=== PATIENT | female | born 1985 | race Caucasian/White ===

== ENCOUNTER → 2016-06-01 | Outpatient (CLI) | payer OTHER | LOC: YCFC.O 13:55 | PROVIDERS: ATTEND Nurse Practitioner Family | DX: D64.9 Anemia, unspecified (principal) ==

== ENCOUNTER 2016-08-06 17:23 | Emergency (ER) | payer OTHER ==
[2016-08-06 17:42] VITALS: TEMP 99.2
--- NOTE | 2016-08-06 17:50 | ED.PDOC ---
History of Present Illness - General Chief Complaint: GI Problem Stated Complaint: n/v/d, aching all over Time Seen by Provider: 08/06/16 17:43 Source: patient Exam Limitations: no limitations - History of Present Illness Initial Comments: Ms. Ladan Joseph 30 y/o female with no chronic medical problem stated that yesterday she had nausea and vomiting x 2 and today with watery diarrhea 4x.She stated that she had been taking care of several sick children at home Allergies/Adverse Reactions: Allergies NO KNOWN ALLERGY Allergy (Unverified 01/10/15 12:44) Home Medications: Ambulatory Orders Ondansetron [Zofran Odt] 4 mg PO Q4H PRN #10 tab 05/14/16 Promethazine HCl 50 mg PO TID PRN #20 tab 08/06/16 Review of Systems - Review of Systems Constitutional: States: no symptoms reported EENTM: States: no symptoms reported Respiratory: States: no symptoms reported Cardiology: States: no symptoms reported Gastrointestinal/Abdominal: States: see HPI Genitourinary: States: no symptoms reported Musculoskeletal: States: no symptoms reported Skin: States: no symptoms reported Neurological: States: no symptoms reported Endocrine: States: no symptoms reported Hematologic/Lymphatic: States: no symptoms reported Past Medical History (General) - Patient Medical History Hx Seizures: No Hx Stroke: No Hx Dementia: No Hx Asthma: Yes Hx of COPD: No Hx Cardiac Disorders: No Hx Congestive Heart Failure: No Hx Pacemaker: No Hx Hypertension: No Hx Thyroid Disease: No Hx Diabetes: No Hx Gastroesophageal Reflux: No Hx Renal Disease: No Hx Cancer: No Hx of HIV: No Hx Hepatitis C: No Hx MRSA: No - Vaccination History Hx Influenza Vaccination: - unknown Hx Pneumococcal Vaccination: No - Social History Hx Tobacco Use: No Hx Alcohol Use: No Hx Substance Use: No Hx Substance Use Treatment: No Hx Depression: No - Female History Hx Last Menstrual Period: 04/29/14 Expected Date of Delivery:: 02/22/15 Family Medical History - Family History Mother Living Status: Still Living Hx Family Asthma: No Hx Family Congestive Heart Failure: No Hx Family Hypertension: Yes Hx Family Stroke: No Hx Cardiac Disease: No Hx Family Diabetes: Yes Hx Family Cancer: Yes Father Family History: Unknown Physical Exam - Physical Exam General Appearance: Alert, Anxious, No apparent distress Eye Exam: bilateral normal Ears, Nose, Throat: hearing grossly normal, normal ENT inspection, normal pharynx Neck: non-tender, full range of motion, supple Respiratory: chest non-tender, lungs clear, normal breath sounds, no respiratory distress Cardiovascular/Chest: normal peripheral pulses, regular rate, rhythm, no edema, no gallop, no JVD, no murmur Gastrointestinal/Abdominal: normal bowel sounds, non tender, soft, no organomegaly, no pulsatile mass Back Exam: normal inspection, no CVA tenderness, no vertebral tenderness Extremity: normal range of motion, non-tender, normal inspection Neurologic: no motor/sensory deficits, alert, normal mood/affect, oriented x 3 Skin Exam: normal color, warm/dry Progress - Progress Progress: 08/06/16 19:42 08/06/16 18:57 URINALYSIS Stat Laboratory Results WBC 3.8 K/mm3 (4.8-10.8) L 08/06/16 18:48 RBC 5.27 M/mm3 (4.20-5.40) 08/06/16 18:48 Hgb 14.2 gm/dL (12.0-16.0) 08/06/16 18:48 Hct 43.2 % (36.0-47.0) 08/06/16 18:48 MCV 81.9 fl (81.0-99.0) 08/06/16 18:48 MCH 26.9 pg (27.0-31.0) L 08/06/16 18:48 MCHC 33.0 g/dL (33.0-37.0) 08/06/16 18:48 RDW 24.5 % (11.5-14.5) H 08/06/16 18:48 Plt Count 109 K/mm3 (130-400) L 08/06/16 18:48 MPV 8.9 fl (7.40-10.4) 08/06/16 18:48 Absolute Neuts (auto) 2.60 K/uL (1.8-6.8) 08/06/16 18:48 Absolute Lymphs (auto) 0.90 K/uL (1.0-3.4) L 08/06/16 18:48 Absolute Monos (auto) 0.20 K/uL (0.2-0.8) 08/06/16 18:48 Absolute Eos (auto) 0.10 K/uL (0.0-0.4) 08/06/16 18:48 Absolute Basos (auto) 0.00 K/uL (0.0-0.1) 08/06/16 18:48 Neutrophils % 68.4 % (42.0-78.0) 08/06/16 18:48 Lymphocytes % 23.1 % (20.0-50.0) 08/06/16 18:48 Monocytes % 4.6 % (2.0-9.0) 08/06/16 18:48 Eosinophils % 3.4 % (1.0-5.0) 08/06/16 18:48 Basophils % 0.5 % (0.0-2.0) 08/06/16 18:48 Normal RBC Morphology 2+aniso 1+microcytosis 08/06/16 18:48 Normal RBC Morphology 2+aniso 1+microcytosis 08/06/16 18:48 Sodium 139 mmol/L (135-145) 08/06/16 18:48 Potassium 3.4 mmol/L (3.6-5.0) L 08/06/16 18:48 Chloride 100 mmol/L (101-111) L 08/06/16 18:48 Carbon Dioxide 32 mmol/L (21-31) H 08/06/16 18:48 Anion Gap 10.4 (12-18) L 08/06/16 18:48 BUN 14 mg/dL (7-18) 08/06/16 18:48 Creatinine 0.83 mg/dL (0.6-1.3) 08/06/16 18:48 BUN/Creatinine Ratio 16.9 (10-20) 08/06/16 18:48 Random Glucose 96 mg/dL (70-105) 08/06/16 18:48 Serum Osmolality 277.9 mOsm/L (275-295) 08/06/16 18:48 Calcium 9.2 mg/dL (8.4-10.2) 08/06/16 18:48 Total Bilirubin 0.4 mg/dL (0.2-1.0) 08/06/16 18:48 AST 22 IU/L (10-42) 08/06/16 18:48 ALT 21 IU/L (10-60) 08/06/16 18:48 Alkaline Phosphatase 72 IU/L (42-121) 08/06/16 18:48 Serum Total Protein 7.2 gm/dL (6.4-8.2) 08/06/16 18:48 Albumin 4.4 g/dl (3.2-5.5) 08/06/16 18:48 Globulin 2.8 gm/dL (2.3-3.5) 08/06/16 18:48 Albumin/Globulin Ratio 1.6 (1.1-1.9) 08/06/16 18:48 Lipase 27 U/L (22-51) 08/06/16 18:48 08/06/16 20:29 Departure - Departure Clinical Impression: Diarrhea Nausea & vomiting Qualifiers: Vomiting type: unspecified Vomiting Intractability: non-intractable Qualifier Code: (R11.2) Nausea with vomiting, unspecified Time of Disposition: 20:30 Disposition: Discharge to Home or Self Care Condition: Good Departure Forms: ED Discharge - Pt. Copy, Patient Portal Self Enrollment Instructions: DI for Viral Gastroenteritis -- Adult, Viral Gastroenteritis, Gastroenteritis Diet Prescriptions: Promethazine HCl 50 mg PO TID PRN #20 tab PRN Reason: Nausea Home Medications: Ambulatory Orders Ondansetron [Zofran Odt] 4 mg PO Q4H PRN #10 tab 05/14/16 Promethazine HCl 50 mg PO TID PRN #20 tab 08/06/16 Additional Instructions: AVOID GREASY/ SPICY FOODS UNTIL BETTER
[2016-08-06] MEDS ORDERED: DICYCLOMINE HCL INJ 20 MG/2 ML AMP IM ONE (18:24)
[2016-08-06] MEDS ORDERED: LACTATED RINGERS 1,000 ML IVS ONE (18:24)
[2016-08-06] MEDS ORDERED: ONDANSETRON INJ 4 MG/2 ML VIAL IV ONE (18:24)
[2016-08-06 20:53] VITALS: BP 118/63; O2SAT 100
== END 2016-08-06 20:53 | disposition home or self-care (01) ==
LOC: ER 17:23
DX: R11.2 Nausea with vomiting, unspecified (principal); R19.7 Diarrhea, unspecified; J45.909 Unspecified asthma, uncomplicated
CPT/HCPCS: 36415; 80053; 81001; 83690; 85025; J0500; J2405; J7120

== ENCOUNTER 2016-08-10 13:11 | Emergency (ER) | payer OTHER ==
[2016-08-10 13:26] VITALS: TEMP 98.4
--- NOTE | 2016-08-10 13:43 | ED.PDOC ---
History of Present Illness - General Chief Complaint: Abdominal Pain Stated Complaint: abdominal pain Time Seen by Provider: 08/10/16 13:33 Source: patient Exam Limitations: no limitations - History of Present Illness Initial Comments: Patient presents with abdominal pain since early this morning. While she was sleeping she woke up and felt a "pop" around the mid-umbilical region. The pain is constant, stabbing, worse with movement, better with rest, no previous episodes. Has had C-sections x 2 and tubal ligation but no other abdominal surgeries. No previous episodes. No N/V/D. Last meal was this morning which did not affect the pain. No associated symptoms. Timing/Duration: other - 10 hours Severity: mild Improving Factors: rest Worsening Factors: movement Associated Symptoms: denies symptoms Allergies/Adverse Reactions: Allergies NO KNOWN ALLERGY Allergy (Verified 08/10/16 13:26) Review of Systems - Review of Systems Constitutional: States: no symptoms reported EENTM: States: no symptoms reported Respiratory: States: no symptoms reported Cardiology: States: no symptoms reported Gastrointestinal/Abdominal: States: see HPI Genitourinary: States: no symptoms reported Musculoskeletal: States: no symptoms reported Skin: States: no symptoms reported Neurological: States: no symptoms reported Endocrine: States: no symptoms reported Hematologic/Lymphatic: States: no symptoms reported Past Medical History (General) - Patient Medical History Hx Seizures: No Hx Stroke: No Hx Dementia: No Hx Asthma: Yes Hx of COPD: No Hx Cardiac Disorders: No Hx Congestive Heart Failure: No Hx Pacemaker: No Hx Hypertension: No Hx Thyroid Disease: No Hx Diabetes: No Hx Gastroesophageal Reflux: No Hx Renal Disease: No Hx Cancer: No Hx of HIV: No Hx Hepatitis C: No Hx MRSA: No Surgical History: other - Vaccination History Hx Tetanus, Diphtheria Vaccination: No Hx Influenza Vaccination: No Hx Pneumococcal Vaccination: No - Social History Hx Tobacco Use: No Hx Alcohol Use: No Hx Substance Use: No Hx Substance Use Treatment: No Hx Depression: No - Activities of Daily Living Hospice Agency (if applicable):: None - Female History Patient is a Female of Child Bearing Age (10 -59 yrs old): No Hx Last Menstrual Period: 04/29/14 Patient : No Expected Date of Delivery:: 02/22/15 - Triage Comment ED Triage Comment: last period "one week ago" Family Medical History - Family History Mother Living Status: Still Living Hx Family Asthma: No Hx Family Congestive Heart Failure: No Hx Family Hypertension: Yes Hx Family Stroke: No Hx Cardiac Disease: No Hx Family Diabetes: Yes Hx Family Cancer: Yes Father Family History: Unknown Physical Exam - Physical Exam General Appearance: Alert Respiratory: lungs clear Cardiovascular/Chest: regular rate, rhythm Gastrointestinal/Abdominal: other - Mildly TTP over periumbilical region with mild rebound tenderness over RLQ. NABS. No guarding. Morbidly obese. Extremity: normal range of motion, non-tender, normal inspection, no pedal edema Skin Exam: normal color Lymphatic: no adenopathy Progress - Progress Progress: 08/10/16 16:22 CT abdomen/pelvis showed possible enteritis or possible beginning of SBO. Patient was not nauseous and said she still had a good appetite. Platelets were 97 which represents almost a 50% drop in the last two months. RDW elevated and WBCs low. Recommend follow up with primary care physician tomorrow for further evaluation of possible hematologic pathology. Return to ER for nausea/vomiting or increasing abdominal pain. Laboratory Tests 08/10/16 08/10/16 08/10/16 13:30 13:38 13:50 WBC 3.8 L RBC 5.21 Hgb 14.1 Hct 42.5 MCV 81.7 MCH 27.0 MCHC 33.2 RDW 23.6 H Plt Count 97 L MPV 9.2 Absolute Neuts (auto) 2.80 Absolute Lymphs (auto) 0.70 L Absolute Monos (auto) 0.30 Absolute Eos (auto) 0.10 Absolute Basos (auto) 0.00 Neutrophils % 73.5 Lymphocytes % 17.5 L Monocytes % 7.0 Eosinophils % 1.6 Basophils % 0.4 Sodium 136 Potassium 3.7 Chloride 100 L Carbon Dioxide 31 Anion Gap 8.7 L BUN 13 Creatinine 0.74 BUN/Creatinine Ratio 17.6 Random Glucose 96 Serum Osmolality 271.9 L Calcium 9.1 Total Bilirubin 0.9 AST 31 ALT 35 Alkaline Phosphatase 70 Serum Total Protein 7.4 Albumin 4.2 Globulin 3.2 Albumin/Globulin Ratio 1.3 Lipase 22 Urine Color Yellow Urine Appearance Clear Urine pH 5.5 Ur Specific [place] <= 1.005 Urine Protein Negative Urine Glucose (UA) Negative Urine Ketones Negative Urine Blood Negative Urine Nitrite Negative Urine Bilirubin Negative Urine Urobilinogen 0.2 Ur Leukocyte Esterase Negative Urine RBC 0 Urine WBC 0 Ur Epithelial Cells 1-3 Amorphous Sediment 1+ Urine Bacteria 0 Urine HCG, Qual Negative Departure - Departure Clinical Impression: Abdominal pain Disposition: Discharge to Home or Self Care Condition: Good Departure Forms: ED Discharge - Pt. Copy, Patient Portal Self Enrollment Instructions: DI for Abdominal Pain-Adult Diet: resume usual diet Additional Instructions: Increase oral fluids. See your primary care doctor tomorrow regarding your blood laboratories. Return to the ER if you cannot keep food down or for increasing abdominal pain.
--- NOTE | 2016-08-10 15:57 | CT ---
Procedure: CT ABDOMEN PELVIS WITH IV CONTRAST Exam date: 08/10/2016 1:49 PM CDT Ordering Provider: Simon Roche Clinical Indication: abdominal pain Comparison: None Technique: Multiple axial helical CT images of the abdomen and pelvis were obtained with oral contrast.. IV contrast also administered. Coronal and sagittal reformatted images were also obtained. Findings: Lung bases are clear and the heart apex within normal limits. No inferior mediastinal abnormality. Inferior osseous structures of the thorax are unremarkable. Marked scoliotic curvature of the lumbosacral spine. The solid abdominal viscera are unremarkable. Multiple prominent loops of small bowel appear moderately distended including the jejunum and proximal ileum. The distal ileum appears fluid filled without mass lesion. There is no mesenteric edema or fat stranding. However, there are a few prominent lymph nodes. Findings are favored to represent an infectious or inflammatory enteritis or an ileus. No definite obstruction, however low-grade partial small bowel obstruction could have this appearance. Consider serial KUBs for evaluation of obstruction if there small bowel obstruction symptoms. No diverticula identified. No peritoneal or retroperitoneal masses or adenopathy. No free fluid or pneumoperitoneum. The appendix is unremarkable. Urinary bladder is unremarkable. No pelvic masses or adenopathy seen. Perirectal fat planes are preserved. Incidental note of a Bartholin's gland cyst in the vulva. Congenital fusion across multiple vertebral element seen throughout the lumbosacral spine without acute fracture or subluxation. There is advanced left greater than right hip osteoarthritis. Impression: 1. Prominent small bowel loops with oral contrast only traversing the jejunum and proximal ileum. Findings are favored to represent an infectious or inflammatory enteritis with ileus. However, early partial small bowel obstruction could have this appearance as well. Consider follow-up with serial KUBs if there are symptoms for small bowel obstruction. 2. 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 Advanced left greater than right hip osteoarthritis. 3. Bartholin's gland cyst. Electronically signed by: Jean Joseph MD 08/10/2016 3:56 PM CDT
[2016-08-10 16:37] VITALS: BP 109/73; O2SAT 96
== END 2016-08-10 16:37 | disposition home or self-care (01) ==
LOC: ER 13:11
DX: R10.9 Unspecified abdominal pain (principal); J45.909 Unspecified asthma, uncomplicated

== ENCOUNTER → 2016-09-23 | Outpatient (CLI) | payer OTHER | LOC: YCFC.O 15:12 | PROVIDERS: ATTEND Nurse Practitioner Family | DX: M79.604 Pain in right leg (principal) ==

== ENCOUNTER → 2016-09-24 | Outpatient (CLI) | payer OTHER ==
--- NOTE | 2016-09-25 04:08 | US ---
Procedure: US LOWER EXTREMITY VEINS LIMITED/UNILATERAL/FOLLOW UP Exam Date: 09/24/2016 Ordering Provider: Roseline Arzate Clinical Indication: PAIN Comparison: None Real time ultrasound was utilized for evaluation of the deep veins of the Right lower extremity. Color Doppler and pulse Doppler analysis was performed, including B-mode/grayscale imaging, Doppler spectral analysis and color flow analysis. Real time visualization of the right lower extremity deep veins was accomplished. Inclusion [employer] Teacher images recorded. The deep veins demonstrated no abnormal intraluminal signal. The pulse Doppler and color Doppler flow patterns demonstrated normal venous flow with respiratory variation. There was increased flow with distal augmentation maneuvers. IMPRESSION: There were no findings to suggest intraluminal clot or obstruction in the deep veins of the right lower extremity. Electronically signed by: Sage Lam MD 09/25/2016 4:08 AM CDT
== END | disposition home or self-care (01) ==
LOC: US 13:28
PROVIDERS: ATTEND Nurse Practitioner Family
DX: M79.604 Pain in right leg (principal)

== ENCOUNTER 2016-11-19 15:21 | Emergency (ER) | payer OTHER ==
--- NOTE | 2016-11-19 16:20 | ED.PDOC ---
History of Present Illness - General Chief Complaint: Lower Extremity Injury Stated Complaint: L ankle pain Time Seen by Provider: 11/19/16 16:18 Source: patient, RN notes reviewed, Vital Signs reviewed Exam Limitations: no limitations - History of Present Illness Initial Comments: Patient was watering plants in her yard and stepped in a hole causing her ankle to twist and pop. She is now having pain and numbness, mostly laterally and posteriorly. Occurred: just prior to arrival Pain - Lower Extremity: moderate: Left Ankle Method of Injury: twisted Improving Factors: rest Worsening Factors: movement Allergies/Adverse Reactions: Allergies NO KNOWN ALLERGY Allergy (Verified 08/10/16 13:26) Review of Systems - Review of Systems Constitutional: States: no symptoms reported Respiratory: States: no symptoms reported Cardiology: States: no symptoms reported Gastrointestinal/Abdominal: States: no symptoms reported Musculoskeletal: States: see HPI, joint pain - L ankle, joint swelling - L ankle Skin: States: no symptoms reported Neurological: States: numbness - L foot and ankle All other Systems: No Change from Baseline Past Medical History (General) - Patient Medical History Hx Seizures: No Hx Stroke: No Hx Dementia: No Hx Asthma: Yes Hx of COPD: No Hx Cardiac Disorders: No Hx Congestive Heart Failure: No Hx Pacemaker: No Hx Hypertension: No Hx Thyroid Disease: No Hx Diabetes: No Hx Gastroesophageal Reflux: No Hx Renal Disease: No Hx Cancer: No Hx of HIV: No Hx Hepatitis C: No Hx MRSA: No - Vaccination History Hx Tetanus, Diphtheria Vaccination: No Hx Influenza Vaccination: No Hx Pneumococcal Vaccination: No - Social History Hx Tobacco Use: No Hx Alcohol Use: No Hx Substance Use: No Hx Substance Use Treatment: No Hx Depression: No - Female History Hx Last Menstrual Period: 04/29/14 Patient : No Expected Date of Delivery:: 02/22/15 Family Medical History - Family History Mother Living Status: Still Living Hx Family Asthma: No Hx Family Congestive Heart Failure: No Hx Family Hypertension: Yes Hx Family Stroke: No Hx Cardiac Disease: No Hx Family Diabetes: Yes Hx Family Cancer: Yes Father Family History: Unknown Physical Exam - Physical Exam General Appearance: Alert, Comfortable, No apparent distress, Well Developed, Well Groomed, Well Hydrated, Well Nourished Cardiovascular/Respiratory: normal peripheral pulses, no respiratory distress Leg: normal inspection, non-tender, no evidence of injury, normal ROM Knee: normal inspection, non-tender, no evidence of injury, normal ROM Ankle: limited ROM - L ankle due to pain, pain, soft tissue tenderness, swelling Foot: normal inspection, non-tender, no evidence of injury, normal ROM, other - Moves all toes, brisk cap refill, 2+ DP pulse, normal sensation to light touch Neuro/Tendon: normal sensation, normal motor functions, normal tendon functions , responds to pain Mental Status: alert, oriented x 3 Skin: normal color, warm/dry Progress - EKG/XRAY/CT XRAY: ankle - No fracture per Radiologist Procedures - Splinting Left Ankle Pre-Made Type: aircast Splint: Ankle stirup splint Pre-Proc Neuro Vasc Exam: normal Post-Proc Neuro Vasc Exam: normal Departure - Departure Clinical Impression: Left ankle sprain Qualifiers: Encounter type: initial encounter Involved ligament of ankle: tibiofibular ligament Qualified Code(s): S93.432A - Sprain of tibiofibular ligament of left ankle, initial encounter Time of Disposition: 16:57 Disposition: Discharge to Home or Self Care Condition: Good Departure Forms: ED Discharge - Pt. Copy, Patient Portal Self Enrollment Instructions: DI for Ankle Sprain Diet: resume usual diet Activity: increase activity as tolerated Referrals: Aicha Wheat NP [Primary Care Provider] - 1-2 Weeks
--- NOTE | 2016-11-19 16:47 | RAD ---
EXAM DESCRIPTION: Ankle,Left 3 Views CLINICAL HISTORY: 31 years, Female, pain s/p twist COMPARISON: None. FINDINGS: No fracture or dislocation. Mild soft tissue swelling laterally. Probable joint effusion. IMPRESSION: No fracture or dislocation. Mild soft tissue swelling laterally Electronically signed by: Emir Lugo MD 11/19/2016 4:46 PM CDT
[2016-11-20 08:33] VITALS: TEMP 98.5
[2016-11-20 08:35] VITALS: BP 118/76; O2SAT 97
== END 2016-11-19 17:22 | disposition home or self-care (01) ==
LOC: ER 15:21
DX: S93.432A Sprain of tibiofibular ligament of left ankle, initial encounter (principal); J45.909 Unspecified asthma, uncomplicated; X50.1XXA Overexertion from prolonged static or awkward postures, initial encounter; Y92.007 Garden or yard of unspecified non-institutional (private) residence as the place of occurrence of the external cause; Y93.H2 Activity, gardening and landscaping

== ENCOUNTER 2017-01-30 15:03 | Emergency (ER) | payer OTHER ==
--- NOTE | 2017-01-30 16:23 | ED.PDOC ---
History of Present Illness - General Chief Complaint: Respiratory Problem Stated Complaint: Feels discomfort with breathing Time Seen by Provider: 01/30/17 16:22 Source: patient Exam Limitations: no limitations - History of Present Illness Initial Comments: Rhoda Joseph 31 y/o female stated that she had been having left sided sharp chest pain non radiating steady for the last 2 weeks.No cough no sob no diaphoresis. Timing/Duration: other - 2 weeks Improving Factors: nothing Worsening Factors: other - deep breaths Associated Symptoms: denies symptoms Allergies/Adverse Reactions: Allergies NO KNOWN ALLERGY Allergy (Verified 01/30/17 16:32) Home Medications: Ambulatory Orders Albuterol Inhaler [Ventolin Hfa Inhaler] 2 puff INH QID PRN 01/30/17 Lidocaine [Aspercreme Lidocaine Max] 4 % EX DAILY #14 pad 01/30/17 Naproxen [Naprosyn] 500 mg PO BID #20 tab 01/30/17 Review of Systems - Review of Systems Constitutional: States: no symptoms reported EENTM: States: no symptoms reported Respiratory: States: no symptoms reported Cardiology: States: no symptoms reported Gastrointestinal/Abdominal: States: no symptoms reported Genitourinary: States: no symptoms reported 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 Past Medical History (General) - Patient Medical History Hx Seizures: No Hx Stroke: No Hx Dementia: No Hx Asthma: Yes Hx of COPD: No Hx Cardiac Disorders: No Hx Congestive Heart Failure: No Hx Pacemaker: No Hx Hypertension: No Hx Thyroid Disease: No Hx Diabetes: No Hx Gastroesophageal Reflux: No Hx Renal Disease: No Hx Cancer: No Hx of HIV: No Hx Hepatitis C: No Hx MRSA: No Hx Other PMH: Yes - noonans syndrome Surgical History: other - hip,ear - Vaccination History Hx Tetanus, Diphtheria Vaccination: No Hx Influenza Vaccination: No Hx Pneumococcal Vaccination: No - Social History Hx Tobacco Use: No Hx Alcohol Use: No Hx Substance Use: No Hx Substance Use Treatment: No Hx Depression: No - Female History Hx Last Menstrual Period: 04/29/14 Patient : No Expected Date of Delivery:: 02/22/15 Family Medical History - Family History Mother Living Status: Still Living Hx Family Asthma: No Hx Family Congestive Heart Failure: No Hx Family Hypertension: Yes Hx Family Stroke: No Hx Cardiac Disease: No Hx Family Diabetes: Yes Hx Family Cancer: Yes Father Family History: Unknown Living Status: Unknown Physical Exam - Physical Exam General Appearance: Alert, Anxious Eye Exam: bilateral normal Ears, Nose, Throat: hearing grossly normal, normal ENT inspection, normal pharynx Neck: non-tender, full range of motion, normal inspection Respiratory: chest non-tender, lungs clear, normal breath sounds, other - tenderness left rib cage Cardiovascular/Chest: normal peripheral pulses, regular rate, rhythm, no murmur Peripheral Pulses: radial,right: 1+, radial,left: 1+ Gastrointestinal/Abdominal: normal bowel sounds, non tender, soft, no organomegaly Back Exam: no CVA tenderness, no vertebral tenderness Extremity: non-tender, no pedal edema, no calf tenderness Skin Exam: normal color, warm/dry Lymphatic: no adenopathy Progress - Progress Progress: 01/30/17 18:25 Last Vital Signs Temp 97.8 F 01/30/17 15:28 Pulse 86 01/30/17 15:28 Resp 20 01/30/17 15:28 BP 121/67 01/30/17 15:28 Pulse Ox 97 01/30/17 15:28 Laboratory Tests 01/30/17 01/30/17 01/30/17 16:39 16:39 16:39 WBC 6.7 RBC 4.94 Hgb 14.3 Hct 42.7 MCV 86.6 MCH 28.9 MCHC 33.4 RDW 13.3 Plt Count 147 MPV 8.8 Absolute Neuts (auto) 3.90 Absolute Lymphs (auto) 2.10 Absolute Monos (auto) 0.50 Absolute Eos (auto) 0.20 Absolute Basos (auto) 0.10 Neutrophils % 57.4 Lymphocytes % 31.3 Monocytes % 6.9 Eosinophils % 3.5 Basophils % 0.9 D-Dimer, Quantitative < 230 Sodium 140 Potassium 4.4 Chloride 108 Carbon Dioxide 28 Anion Gap 8.4 L BUN 20 H Creatinine 0.82 BUN/Creatinine Ratio 24.4 H Random Glucose 95 Serum Osmolality 281.8 Calcium 9.5 Total Bilirubin 0.8 AST 18 ALT 15 Alkaline Phosphatase 60 Troponin I Serum Total Protein 7.2 Albumin 4.1 Globulin 3.1 Albumin/Globulin Ratio 1.3 Urine HCG, Qual Urine Opiates Screen Urine Barbiturates Ur Phencyclidine Scrn U Amphetamin/Meth Scrn U Benzodiazepines Scrn U Cocaine Metab Screen U Cannabinoids Screen 01/30/17 01/30/17 01/30/17 16:39 16:39 16:39 WBC RBC Hgb Hct MCV MCH MCHC RDW Plt Count MPV Absolute Neuts (auto) Absolute Lymphs (auto) Absolute Monos (auto) Absolute Eos (auto) Absolute Basos (auto) Neutrophils % Lymphocytes % Monocytes % Eosinophils % Basophils % D-Dimer, Quantitative Sodium Potassium Chloride Carbon Dioxide Anion Gap BUN Creatinine BUN/Creatinine Ratio Random Glucose Serum Osmolality Calcium Total Bilirubin AST ALT Alkaline Phosphatase Troponin I < 0.02 Serum Total Protein Albumin Globulin Albumin/Globulin Ratio Urine HCG, Qual Negative Urine Opiates Screen Negative Urine Barbiturates Negative Ur Phencyclidine Scrn Negative U Amphetamin/Meth Scrn Negative U Benzodiazepines Scrn Negative U Cocaine Metab Screen Negative U Cannabinoids Screen Negative - EKG/XRAY/CT EKG: Christophe, Sinus, nonspecific ST T wave Chg Comments: heart rate 59 XRAY: chest - no acute changes Departure - Departure Clinical Impression: Costochondritis Chest pain Qualifiers: Chest pain type: pleurodynia Qualified Code(s): R07.81 - Pleurodynia Time of Disposition: 18:27 Disposition: Discharge to Home or Self Care Condition: Good Departure Forms: ED Discharge - Pt. Copy, Patient Portal Self Enrollment Instructions: Costochondritis, DI for Costochondritis Referrals: Aicha Wheat NP [Primary Care Provider] - 1-2 Weeks Prescriptions: Lidocaine [Aspercreme Lidocaine Max] 4 % EX DAILY #14 pad Naproxen [Naprosyn] 500 mg PO BID #20 tab Home Medications: Ambulatory Orders Albuterol Inhaler [Ventolin Hfa Inhaler] 2 puff INH QID PRN 01/30/17 Lidocaine [Aspercreme Lidocaine Max] 4 % EX DAILY #14 pad 01/30/17 Naproxen [Naprosyn] 500 mg PO BID #20 tab 01/30/17 Additional Instructions: Follow up with primary 02/01/2017
--- NOTE | 2017-01-30 16:29 | RAD ---
EXAM: Two view chest. INDICATION: Chest pain. COMPARISON: Chest x-ray: 04/06/2016. FINDINGS: Cardiac silhouette: Unremarkable. Harriet: Unremarkable. Lobar consolidation: None. Pleural effusion: None. Pneumothorax: None. Other: None. Bones: There is levoscoliosis of the thoracic spine Other: None. IMPRESSION: 1. No acute cardiopulmonary process. Electronically signed by: Nilo Porter MD 01/30/2017 4:27 PM CDT Workstation: [id number]
[2017-01-30 16:32] VITALS: TEMP 97.8
[2017-01-30] MEDS ORDERED: KETOROLAC TROMETHAMINE INJ 30 MG/ML VIAL IM ONE (18:31)
[2017-01-30 18:52] VITALS: BP 119/81; O2SAT 100
== END 2017-01-30 18:51 | disposition home or self-care (01) ==
LOC: ER 15:03
DX: R07.81 Pleurodynia (principal); J45.909 Unspecified asthma, uncomplicated; Q87.1 Congenital malformation syndromes predominantly associated with short stature
CPT/HCPCS: 36415; 71020; 80053; 80307; 81025; 84484; 85025; 85379; 93005; J1885

== ENCOUNTER 2017-11-03 10:42 | Emergency (ER) | payer MEDICAID, MEDICARE ==
[2017-11-03 11:13] VITALS: BP 126/64; TEMP 98.2; O2SAT 97
[2017-11-03] MEDS ORDERED: ORPHENADRINE CITRATE 30 MG/ML AMP IM ONE (11:34)
[2017-11-03] MEDS ORDERED: KETOROLAC TROMETHAMINE INJ 60 MG/2 ML VIAL IM ONE (11:34)
[2017-11-03] MEDS ORDERED: traMADol 37.5MG/APAP 325MG 1 EA TAB PO ONE (11:35)
--- NOTE | 2017-11-03 11:40 | ED.PDOC ---
History of Present Illness - General Chief Complaint: Back Pain or Injury Stated Complaint: back pain Time Seen by Provider: 11/03/17 11:10 Source: patient Exam Limitations: no limitations - History of Present Illness Initial Comments: PT REPORTS RIGHT SIDED LOWER BACK PAIN WITH RADIATION DOWN RIGHT LEG SINCE YESTERDAY. PT REPORTS TAKING TYLENOL YESTERDAY WITHOUT RELIEF. PT DENIES FALL OR INJURY. Timing/Duration: 7-24 hours Quality/Severity: moderate, radiation Back Pain Location: lumbar spine Back Pain Radiation: buttocks, upper legs Improving Factors: immobilization Worsening Factors: movement Associated Symptoms: lower back pain Allergies/Adverse Reactions: Allergies NO KNOWN ALLERGY Allergy (Verified 01/30/17 16:32) Home Medications: Ambulatory Orders Albuterol Inhaler [Ventolin Hfa Inhaler] 2 puff INH QID PRN 01/30/17 Lidocaine [Aspercreme Lidocaine Max] 4 % EX DAILY #14 pad 01/30/17 Naproxen [Naprosyn] 500 mg PO BID #20 tab 01/30/17 Cyclobenzaprine HCl [Flexeril] 10 mg PO Q6HR PRN #20 tab 11/03/17 Ibuprofen 800 mg PO Q8HR PRN #30 tab 11/03/17 Tramadol-Acetaminophen [Ultracet] 1 - 2 tab PO Q6HR PRN #30 tab 11/03/17 Review of Systems - Review of Systems Constitutional: Denies: chills, fever EENTM: Denies: ear pain, nose congestion Respiratory: Denies: cough, short of breath Cardiology: Denies: chest pain, palpitations Gastrointestinal/Abdominal: Denies: diarrhea, nausea, vomiting Genitourinary: Denies: dysuria, frequency Musculoskeletal: States: see HPI, back pain, muscle pain Skin: Denies: change in hair/nails, dryness Neurological: Denies: headache, numbness Endocrine: States: no symptoms reported Hematologic/Lymphatic: States: no symptoms reported Past Medical History (General) - Patient Medical History Hx Seizures: No Hx Stroke: No Hx Dementia: No Hx Asthma: Yes Hx of COPD: No Hx Cardiac Disorders: No Hx Congestive Heart Failure: No Hx Pacemaker: No Hx Hypertension: No Hx Thyroid Disease: No Hx Diabetes: No Hx Gastroesophageal Reflux: No Hx Renal Disease: No Hx Cancer: No Hx of HIV: No Hx Hepatitis C: No Hx MRSA: No Hx Other - free text: NOONANS SYNDROME Surgical History: other - Vaccination History Hx Tetanus, Diphtheria Vaccination: No Hx Influenza Vaccination: No Hx Pneumococcal Vaccination: No - Social History Hx Tobacco Use: No Hx Alcohol Use: No Hx Substance Use: No Hx Substance Use Treatment: No Hx Depression: No - Female History Hx Last Menstrual Period: 04/29/14 Patient : No Expected Date of Delivery:: 02/22/15 Family Medical History - Family History Mother Living Status: Still Living Hx Family Asthma: No Hx Family Congestive Heart Failure: No Hx Family Hypertension: Yes Hx Family Stroke: No Hx Cardiac Disease: No Hx Family Diabetes: Yes Hx Family Cancer: Yes Father Family History: Unknown Living Status: Unknown Physical Exam - Physical Exam General Appearance: Alert, Comfortable, Obvious distress, Well Groomed, Well Hydrated, Well Nourished, Other - SHORT STATURE Eyes, Ears, Nose, Throat Exam: PERRL/EOMI, normal ENT inspection Neck Exam: non-tender, full range of motion, normal alignment, normal inspection Cardiovascular/Respiratory: regular rate, rhythm, no M/R/G, normal breath sounds , no respiratory distress Back Exam: no vertebral tenderness, other - RIGHT PARA LUMBAR TENDERNESS Extremity Exam: no evidence of injury, normal range of motion, other - POSITIVE STRAIGHT LEG RAISE ON RIGHT AT 30DEGREES Neurologic: no motor/sensory deficits, alert, normal mood/affect, oriented x 3 Skin Exam: normal color, warm/dry Progress - Progress Progress: 11/03/17 12:56 PT REPORTS SIGNIFICANT IMPROVEMENT AFTER TORADOL, NORFLEX, AND ULTRACET. Departure - Departure Clinical Impression: Acute sciatica Time of Disposition: 12:06 Disposition: Long-Term Condition: Good Departure Forms: ED Discharge - Pt. Copy, Patient Portal Self Enrollment Instructions: DI for Back Pain With Sciatica Diet: resume usual diet Activity: increase activity as tolerated, no exercise, no lifting Referrals: Roseline Arzate NP [Primary Care Provider] - 1-2 Weeks Prescriptions: Cyclobenzaprine HCl [Flexeril] 10 mg PO Q6HR PRN #20 tab PRN Reason: Muscle Spasms Tramadol-Acetaminophen [Ultracet] 1 - 2 tab PO Q6HR PRN #30 tab PRN Reason: Pain Ibuprofen 800 mg PO Q8HR PRN #30 tab PRN Reason: Pain Home Medications: Ambulatory Orders Albuterol Inhaler [Ventolin Hfa Inhaler] 2 puff INH QID PRN 01/30/17 Lidocaine [Aspercreme Lidocaine Max] 4 % EX DAILY #14 pad 01/30/17 Naproxen [Naprosyn] 500 mg PO BID #20 tab 01/30/17 Cyclobenzaprine HCl [Flexeril] 10 mg PO Q6HR PRN #20 tab 11/03/17 Ibuprofen 800 mg PO Q8HR PRN #30 tab 11/03/17 Tramadol-Acetaminophen [Ultracet] 1 - 2 tab PO Q6HR PRN #30 tab 11/03/17
== END 2017-11-03 12:19 ==
LOC: ER 10:42
DX: M54.41 Lumbago with sciatica, right side (principal); J45.909 Unspecified asthma, uncomplicated; Q87.1 Congenital malformation syndromes predominantly associated with short stature; Z79.899 Other long term (current) drug therapy
CPT/HCPCS: J1885; J2360

== ENCOUNTER 2017-11-17 11:23 | Emergency (ER) | payer MEDICAID ==
[2017-11-17 11:37] VITALS: TEMP 97.8
--- NOTE | 2017-11-17 11:39 | ED.PDOC ---
History of Present Illness - General Chief Complaint: NOTE KEEPER Problem Time Seen by Provider: 11/17/17 11:36 Source: patient, RN notes reviewed Additional Information: 32 YEAR OLD PRESENTS WITH HEAVY MENSTRUAL BLEEDING ASSOCIATED WITH CRAMPS HER PERIODS LAST 7 DAYS AND IT HAS BEEN PAINFUL SHE HAS BEEN SEEING HER OBGYN WHO HAS RECOMMENDED HYSTRECTOMY SHE HAS NO OTHER KNOWN MEDICAL PROBLEMS SHE IS NOT ANY ANTICOAGULANTS SHE HAS NO SYNCOPAL SPELLS - History of Present Illness Timing/Duration: week Quality: moderate, cramping Onset Location: unknown Radiation: none Activites at Onset: none Improving Factors: nothing Worsening Factors: nothing Associated Symptoms: denies symptoms Allergies/Adverse Reactions: Allergies NO KNOWN ALLERGY Allergy (Verified 01/30/17 16:32) Home Medications: Ambulatory Orders Albuterol Inhaler [Ventolin Hfa Inhaler] 2 puff INH QID PRN 01/30/17 Lidocaine [Aspercreme Lidocaine Max] 4 % EX DAILY #14 pad 01/30/17 Naproxen [Naprosyn] 500 mg PO BID #20 tab 01/30/17 Cyclobenzaprine HCl [Flexeril] 10 mg PO Q6HR PRN #20 tab 11/03/17 Ibuprofen 800 mg PO Q8HR PRN #30 tab 11/03/17 Tramadol-Acetaminophen [Ultracet] 1 - 2 tab PO Q6HR PRN #30 tab 11/03/17 Acetamin W/Cod #3 Tab [Tylenol w/CODEINE #3] 1 ea PO Q6HR PRN #40 tab 11/17/17 Review of Systems - Review of Systems Constitutional: States: no symptoms reported EENTM: States: no symptoms reported Respiratory: States: no symptoms reported Cardiology: States: no symptoms reported Gastrointestinal/Abdominal: States: no symptoms reported Genitourinary: States: see HPI Musculoskeletal: States: no symptoms reported Skin: States: no symptoms reported Neurological: States: no symptoms reported Endocrine: States: no symptoms reported Hematologic/Lymphatic: States: no symptoms reported Past Medical History (General) - Patient Medical History Hx Seizures: No Hx Stroke: No Hx Dementia: No Hx Asthma: Yes Hx of COPD: No Hx Cardiac Disorders: No Hx Congestive Heart Failure: No Hx Pacemaker: No Hx Hypertension: No Hx Thyroid Disease: No Hx Diabetes: No Hx Gastroesophageal Reflux: No Hx Renal Disease: No Hx Cancer: No Hx of HIV: No Hx Hepatitis C: No Hx MRSA: No - Vaccination History Hx Tetanus, Diphtheria Vaccination: No Hx Influenza Vaccination: No Hx Pneumococcal Vaccination: No - Social History Hx Tobacco Use: No Hx Alcohol Use: No Hx Substance Use: No Hx Substance Use Treatment: No Hx Depression: No - Female History Hx Last Menstrual Period: 04/29/14 Patient : No Expected Date of Delivery:: 02/22/15 Family Medical History - Family History Mother Living Status: Still Living Hx Family Asthma: No Hx Family Congestive Heart Failure: No Hx Family Hypertension: Yes Hx Family Stroke: No Hx Cardiac Disease: No Hx Family Diabetes: Yes Hx Family Cancer: Yes Father Family History: Unknown Living Status: Unknown Physical Exam - Physical Exam General Appearance: Alert, Anxious Eyes, Ears, Nose, Throat Exam: PERRL/EOMI, normal ENT inspection, TMs normal, pharynx normal Neck: non-tender, full range of motion, supple Cardiovascular/Respiratory: regular rate, rhythm, no M/R/G, normal peripheral pulses, no JVD, normal breath sounds Gastrointestinal/Abdominal: normal bowel sounds, non tender, soft, no organomegaly, no pulsatile mass Back Exam: normal inspection, no CVA tenderness, no vertebral tenderness, CVA tenderness (R) Neurologic: registered occupational therapist II-XII nml as tested, no motor/sensory deficits, alert, normal mood/affect, oriented x 3 Progress - Results/Orders Results/Orders: Laboratory Tests 11/17/17 11/17/17 11/17/17 11:53 11:53 11:53 WBC 4.5 L RBC 4.68 Hgb 12.9 Hct 39.0 MCV 83.3 MCH 27.5 MCHC 33.0 RDW 14.5 Plt Count 166 MPV 8.3 Absolute Neuts (auto) 2.40 Absolute Lymphs (auto) 1.70 Absolute Monos (auto) 0.30 Absolute Eos (auto) 0.10 Absolute Basos (auto) 0.00 Neutrophils % 53.2 Lymphocytes % 37.5 Monocytes % 6.2 Eosinophils % 2.4 Basophils % 0.7 Sodium 138 Potassium 3.6 Chloride 102 Carbon Dioxide 30 Anion Gap 9.6 L BUN 15 Creatinine 0.91 BUN/Creatinine Ratio 16.5 Random Glucose 97 Serum Osmolality 276.4 Calcium 9.1 Serum HCG, Qual Negative Departure - Departure Clinical Impression: Dysfunctional uterine bleeding, Dysmenorrhea Disposition: Discharge to Home or Self Care Condition: Good Departure Forms: ED Discharge - Pt. Copy, Patient Portal Self Enrollment Diet: resume usual diet Activity: increase activity as tolerated Referrals: Roseline Arzate NP [Primary Care Provider] - 1-2 Weeks Prescriptions: Acetamin W/Cod #3 Tab [Tylenol w/CODEINE #3] 1 ea PO Q6HR PRN #40 tab PRN Reason: Mild To Moderate Pain Home Medications: Ambulatory Orders Albuterol Inhaler [Ventolin Hfa Inhaler] 2 puff INH QID PRN 01/30/17 Lidocaine [Aspercreme Lidocaine Max] 4 % EX DAILY #14 pad 01/30/17 Naproxen [Naprosyn] 500 mg PO BID #20 tab 01/30/17 Cyclobenzaprine HCl [Flexeril] 10 mg PO Q6HR PRN #20 tab 11/03/17 Ibuprofen 800 mg PO Q8HR PRN #30 tab 11/03/17 Tramadol-Acetaminophen [Ultracet] 1 - 2 tab PO Q6HR PRN #30 tab 11/03/17 Acetamin W/Cod #3 Tab [Tylenol w/CODEINE #3] 1 ea PO Q6HR PRN #40 tab 11/17/17
[2017-11-17] MEDS ORDERED: KETOROLAC TROMETHAMINE INJ 60 MG/2 ML VIAL IM ONE (11:41)
[2017-11-17 13:14] VITALS: BP 106/59; O2SAT 99
== END 2017-11-17 13:06 | disposition home or self-care (01) ==
LOC: ER 11:23
DX: N93.8 Other specified abnormal uterine and vaginal bleeding (principal); J45.909 Unspecified asthma, uncomplicated
CPT/HCPCS: 36415; 80048; 84703; 85025; J1885

== ENCOUNTER 2018-07-25 18:55 | Emergency (ER) | payer MEDICARE, OTHER ==
[2018-07-25] MEDS ORDERED: SUCRALFATE 1 GM TAB PO ONE (19:40)
[2018-07-25] MEDS ORDERED: PANTOPRAZOLE SODIUM TAB 40 MG PO ONE (19:40)
[2018-07-25] MEDS ORDERED: DICYCLOMINE HCL 20 MG TAB PO ONE (19:41)
--- NOTE | 2018-07-25 19:41 | ED.PDOC ---
History of Present Illness - General Chief Complaint: General Stated Complaint: L ear pain, back pain, abd burning Time Seen by Provider: 07/25/18 19:37 Source: patient Exam Limitations: no limitations - History of Present Illness Initial Comments: Rhoda Joseph 32 y/o female came to ER with sharp left earache ,dull mid back pain,burning pain upper abdomen for the last 4 days.No fever ,dysuria,with mild nasal congestion as well as scoliosis. Timing/Duration: other - see hpi Severity: moderate Improving Factors: rest Worsening Factors: movement Associated Symptoms: other - see hpi Allergies/Adverse Reactions: Allergies NO KNOWN ALLERGY Allergy (Verified 01/30/17 16:32) Home Medications: Ambulatory Orders Albuterol Inhaler [Ventolin Hfa Inhaler] 2 puff INH QID PRN 01/30/17 Baclofen 20 mg PO BID #14 tab 07/25/18 Pantoprazole Tablet [Protonix] 40 mg PO ACBK #60 tab 07/25/18 Sucralfate Tab [Carafate Tab] 1 gm PO ACHS #60 tablet 07/25/18 Review of Systems - Review of Systems Constitutional: States: no symptoms reported EENTM: States: ear pain Respiratory: States: no symptoms reported Cardiology: States: no symptoms reported Gastrointestinal/Abdominal: States: see HPI Genitourinary: States: no symptoms reported Musculoskeletal: States: see HPI Skin: States: no symptoms reported Endocrine: States: no symptoms reported Past Medical History (General) - Patient Medical History Hx Seizures: No Hx Stroke: No Hx Dementia: No Hx Asthma: Yes Hx of COPD: No Hx Cardiac Disorders: No Hx Congestive Heart Failure: No Hx Pacemaker: No Hx Hypertension: No Hx Thyroid Disease: No Hx Diabetes: No Hx Gastroesophageal Reflux: Yes Hx Renal Disease: No Hx Cancer: No Hx of HIV: No Hx Hepatitis C: No Hx MRSA: No Hx Other PMH: Yes - noonans syndrome Surgical History: other - hip ear - Vaccination History Hx Tetanus, Diphtheria Vaccination: No Hx Influenza Vaccination: No Hx Pneumococcal Vaccination: No - Social History Hx Tobacco Use: No Hx Alcohol Use: No Hx Substance Use: No Hx Substance Use Treatment: No Hx Depression: No Hx Physical Abuse: No Hx Emotional Abuse: No - Female History Patient is a Female of Child Bearing Age (10 -59 yrs old): Yes Hx Last Menstrual Period: 07/09/18 Patient : No - Triage Comment ED Triage Comment: left ear pain, back pain from her "scoliosis " getting worse. Burning to upper abdomen especially after eating Family Medical History - Family History Mother Living Status: Still Living Hx Family Asthma: No Hx Family Congestive Heart Failure: No Hx Family Hypertension: Yes Hx Family Stroke: No Hx Cardiac Disease: No Hx Family Diabetes: Yes Hx Family Cancer: Yes Father Family History: Unknown Living Status: Unknown Physical Exam - Physical Exam General Appearance: Alert, Comfortable, No apparent distress Eye Exam: bilateral normal Ears, Nose, Throat: hearing grossly normal, normal ENT inspection, normal pharynx Neck: non-tender, full range of motion, supple, normal inspection Respiratory: chest non-tender, lungs clear, normal breath sounds, no respiratory distress Cardiovascular/Chest: normal peripheral pulses, regular rate, rhythm, no murmur Peripheral Pulses: radial,right: 2+, radial,left: 2+ Gastrointestinal/Abdominal: non tender, soft, no organomegaly Back Exam: no CVA tenderness, no vertebral tenderness, muscle spasm, other - thoracic scoliosis Extremity: no pedal edema, no calf tenderness Neurologic: no motor/sensory deficits, alert, oriented x 3 Skin Exam: normal color, warm/dry Progress - Progress Progress: 07/25/18 19:54 Vital Signs - 8 hr 07/25/18 19:10 Temperature 99.0 F Pulse Rate [ 92 H Right] Respiratory 18 Rate Blood Pressure 117/73 [Left Arm] O2 Sat by Pulse 100 Oximetry Departure - Departure Clinical Impression: Thoracic spine pain, Otalgia of left ear, Epigastric abdominal pain Scoliosis deformity of spine Qualifiers: Scoliosis type: thoracogenic Spinal region: thoracic Qualified Code(s): 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 Copy, Patient Portal Self Enrollment Instructions: Scoliosis (DC), Scoliosis Diet: bland diet, other - avoid greasy /spicy foods Referrals: Roseline Arzate NP [Primary Care Provider] - 1-2 Weeks Prescriptions: Baclofen 20 mg PO BID #14 tab Pantoprazole Tablet [Protonix] 40 mg PO ACBK #60 tab Sucralfate Tab [Carafate Tab] 1 gm PO ACHS #60 tablet Home Medications: Ambulatory Orders Albuterol Inhaler [Ventolin Hfa Inhaler] 2 puff INH QID PRN 01/30/17 Baclofen 20 mg PO BID #14 tab 07/25/18 Pantoprazole Tablet [Protonix] 40 mg PO ACBK #60 tab 07/25/18 Sucralfate Tab [Carafate Tab] 1 gm PO ACHS #60 tablet 07/25/18 Additional Instructions: Follow up with your primary Md for referral to Scoliosis clinic;Continue with Oxymetazoline Nose spray 2 sprays each nose am/pm 3 days on 3 days off for nasal congestion;Use nasal saline rinse both nostril as needed for nasal congestion ;do not blow your nose
[2018-07-25] MEDS ORDERED: traMADol HCL 50 MG TAB PO ONE (19:46)
[2018-07-25] MEDS ORDERED: ORPHENADRINE CITRATE 30 MG/ML AMP IM ONE (19:46)
[2018-07-25] MEDS ORDERED: OXYMETAZOLINE NASAL SPRAY 15 ML BTTL BNAS PRN (19:58)
[2018-07-25] MEDS ORDERED: SUCRALFATE 1 GM/10 ML 1 GM UD ONE (20:06)
[2018-07-25 20:23] VITALS: BP 123/90; TEMP 98.9; O2SAT 99
== END 2018-07-25 20:23 | disposition home or self-care (01) ==
LOC: ER 18:55
DX: H92.02 Otalgia, left ear (principal); R10.13 Epigastric pain; M41.34 Thoracogenic scoliosis, thoracic region; M54.6 Pain in thoracic spine; R09.81 Nasal congestion; J45.909 Unspecified asthma, uncomplicated; K21.9 Gastro-esophageal reflux disease without esophagitis; Z79.899 Other long term (current) drug therapy

== ENCOUNTER → 2018-08-08 | Outpatient (CLI) | payer OTHER | LOC: LAB.O 10:13 | PROVIDERS: ATTEND Nurse Practitioner Family | DX: Z00.00 Encounter for general adult medical examination without abnormal findings (principal); Z13.220 Encounter for screening for lipoid disorders; D50.9 Iron deficiency anemia, unspecified; Z68.37 Body mass index [BMI] 37.0-37.9, adult ==

== ENCOUNTER → 2018-08-10 | Outpatient (CLI) | payer OTHER ==
--- NOTE | 2018-08-10 17:49 | MAM ---
EXAM DESCRIPTION: 3D Diagnostic, Bilateral: Digital Mammography CLINICAL HISTORY: 32 yearsFemaleLUMP IN LEFT BREAST . Palpable mass upper outer quadrant middle third of left breast. Pain in the entire lateral half of the left breast. Severe scoliosis. No personal history of breast cancer. Mother with ovarian cancer at age 20. Childbirth. Premenopausal. No HRT. Remote family history of breast cancer. Lifetime risk of developing breast cancer (Tyrer-Cuzick model) percentage is not calculated. COMPARISON: Targeted left breast ultrasound included with this examination.. . TECHNIQUE: Bilateral CC, MLO, and LM projection full-field images, digital mammographic tomosynthesis technique. Bilateral 2-D digital full-field MLO images. CAD not available. FINDINGS: The breast parenchymal density pattern is: Heterogeneously dense breast tissue, which may obscure small masses. No skin thickening or nipple retraction mass density versus focal asymmetry in the upper-outer quadrant of the left breast near the skin surface and near the skin marker or mass is palpable. Accessory breast tissue in the bilateral axilla. Denser fibroglandular tissues in the upper outer quadrants of both breasts. No focal, stellate mass or density, focal asymmetry , and no suspicious microcalcifications right breast. No mass density or suspicious microcalcifications in the left breast. ULTRASOUND: Scanning of the upper outer quadrant of the middle third of the left breast at the 1:00 to 2:00 sector, 9 cm from the nipple. This is adjacent to the skin marker. Mostly fibroglandular tissues with minimal fatty Echotexture. No dominant solid mass or distinct cyst. No parenchymal edema or large calcifications. No overlying skin changes. Normal vascularity. IMPRESSION: Benign exam. BIRAD CATEGORY: 2 BENIGN FINDINGS. RECOMMENDATIONS: FOLLOW UP: Routine digital bilateral mammographic screening, beginning at age 40 , unless otherwise clinically indicated. The FINDINGS and the FOLLOW-UP plan were reviewed in person with the patient after the examination. Written communication explaining the IMPRESSION and FOLLOW-UP will be mailed to the patient and referring care provider. According to the [employer], yearly mammograms are recommended starting at age 40 and continuing as long as a woman is in good health. Any breast change noted on a breast self-exam should be reported promptly to the patient's healthcare provider. Breast MRI is recommended for women with an approximately 20-25% or greater lifetime risk of breast cancer, including women with a strong family history of breast or ovarian cancer and women who have been treated for Hodgkin's disease. A negative mammographic report should not delay tissue diagnosis in patients with significant clinical history or physical findings. Extremely dense breast tissue limits the sensitivity of digital mammography. Electronically signed by: Brendon Gibbs MD 08/10/2018 5:46 PM CDT
--- NOTE | 2018-08-10 17:52 | US ---
EXAM DESCRIPTION: Breast,Left: Ultrasound CLINICAL HISTORY: 32 yearsFemaleLUMP IN LEFT BREAST. Upper outer quadrant left breast. COMPARISON: Bilateral diagnostic digital breast tomosynthesis on this visit. TECHNIQUE: Transcutaneous scanning of the left breast utilizing bermudez-scale and Doppler modes. Scanning performed by the doors prefitter and Dr. Gibbs. FINDINGS: Scanning of the upper outer quadrant of the middle third of the left breast at the 1:00 to 2:00 sector, 9 cm from the nipple. This is adjacent to the skin marker. Mostly fibroglandular tissues with minimal fatty echotexture. No dominant solid mass or distinct cyst. No parenchymal edema or large calcifications. No overlying skin changes. Normal vascularity. IMPRESSION: 1. Bi-Rads Category 2: Benign. 2. Please refer to bilateral diagnostic digital breast tomosynthesis examination and report on this visit. The FINDINGS and the FOLLOW-UP plan were reviewed in person with the patient after the examination. Written communication explaining the IMPRESSION and FOLLOW-UP will be mailed to the patient and referring care provider. Electronically signed by: Brendon Gibbs MD 08/10/2018 5:49 PM CDT
== END ==
LOC: US 15:00
PROVIDERS: ATTEND Nurse Practitioner Family
DX: N63.20 Unspecified lump in the left breast, unspecified quadrant (principal)
CPT/HCPCS: 76641; 77066; G0279

== ENCOUNTER 2018-08-22 13:51 | Emergency (ER) | payer OTHER ==
[2018-08-22 14:26] VITALS: TEMP 99.3
[2018-08-22] MEDS ORDERED: HYDROcodone 5MG/APAP 325MG 1 EA TAB PO ONE (14:42)
[2018-08-22] MEDS ORDERED: KETOROLAC TROMETHAMINE INJ 30 MG/ML VIAL IV ONE (14:42)
--- NOTE | 2018-08-22 14:46 | ED.PDOC ---
History of Present Illness - General Chief Complaint: GI Problem Stated Complaint: Pt complains of headache, dizziness, LLQ abd pain Time Seen by Provider: 08/22/18 14:28 Information Source: patient Exam Limitations: no limitations - History of Present Illness Initial Comments: SHE WAS SEEN BY HER OB YESTERDAY, A SCHEDULED ROUTINE VISIT. SHE VOICES THAT SHE HAS BEEN HAVING ABDOMINAL PAIN INTERMITTENTLY FOR THE PAST THREE YEARS. MORE ON THE LEFT LOWER QUADRANT. SHE WAS TENDER ON THE PELVIC AREA AND HAS BEEN SCHEDULED FOR IMAGING IN [place] ON OCTOBER 02. Abdominal Pain Onset Location: LLQ Pain Radiation: no radiation Quality: moderate Timing/Duration: other - HAS BEEN HURTING FOR THE PAST THREE YEARS. Worsening Factors: nothing Associated Symptoms: denies symptoms Review of Systems - Review of Systems Constitutional: States: no symptoms reported EENTM: States: no symptoms reported Respiratory: States: no symptoms reported Cardiology: States: no symptoms reported Gastrointestinal/Abdominal: States: abdominal pain Musculoskeletal: States: other - HX OF SEVERE SCOLIOSIS Skin: States: no symptoms reported Neurological: States: no symptoms reported Endocrine: States: no symptoms reported Hematologic/Lymphatic: States: no symptoms reported Past Medical History (General) - Patient Medical History Hx Seizures: No Hx Stroke: No Hx Dementia: No Hx Asthma: Yes Hx of COPD: No Hx Cardiac Disorders: No Hx Congestive Heart Failure: No Hx Pacemaker: No Hx Hypertension: No Hx Thyroid Disease: No Hx Diabetes: No Hx Gastroesophageal Reflux: Yes Hx Renal Disease: No Hx Cancer: No Hx of HIV: No Hx Hepatitis C: No Hx MRSA: No Hx Other - free text: BARB SYNDROME, SEVERE SCOLIOSIS. Surgical History: other - Vaccination History Hx Tetanus, Diphtheria Vaccination: No Hx Influenza Vaccination: No Hx Pneumococcal Vaccination: No Immunizations Up to Date: - Unknown - Social History Hx Tobacco Use: No Hx Alcohol Use: No Hx Substance Use: No Hx Substance Use Treatment: No Hx Depression: No Hx Physical Abuse: No Hx Emotional Abuse: No - Female History Patient is a Female of Child Bearing Age (10 -59 yrs old): Yes Hx Last Menstrual Period: 07/09/18 Patient : - Pt denies Expected Date of Delivery:: 02/22/15 Family Medical History - Family History Mother Living Status: Still Living Hx Family Asthma: No Hx Family Congestive Heart Failure: No Hx Family Hypertension: Yes Hx Family Stroke: No Hx Cardiac Disease: No Hx Family Diabetes: Yes Hx Family Cancer: Yes Father Family History: Unknown Living Status: Unknown Physical Exam - Physical Exam General Appearance: Alert, Well Developed, Well Groomed, Well Nourished Eyes, Ears, Nose, Throat Exam: PERRL/EOMI, normal ENT inspection Neck: non-tender, full range of motion Respiratory: chest non-tender, lungs clear, normal breath sounds, no respiratory distress Cardiovascular/Chest: normal peripheral pulses, regular rate, rhythm, no edema, no gallop, no JVD, no murmur Peripheral Pulses: No deficit Gastrointestinal/Abdominal: tenderness - TO THE LLQ Rectal Exam: deferred Back Exam: vertebral tenderness, other - SCOLIOSIS Extremity: normal range of motion, non-tender, normal inspection Progress - Progress Progress: 08/22/18 16:11 Laboratory Results WBC 4.5 K/mm3 (4.8-10.8) L 08/22/18 14:50 RBC 4.52 M/mm3 (4.20-5.40) 08/22/18 14:50 Hgb 10.4 gm/dL (12.0-16.0) L 08/22/18 14:50 Hct 32.6 % (36.0-47.0) L 08/22/18 14:50 MCV 72.2 fl (81.0-99.0) L 08/22/18 14:50 MCH 23.0 pg (27.0-31.0) L 08/22/18 14:50 MCHC 31.8 g/dL (33.0-37.0) L 08/22/18 14:50 RDW 16.7 % (11.5-14.5) H 08/22/18 14:50 Plt Count 157 K/mm3 (130-400) 08/22/18 14:50 MPV 7.8 fl (7.40-10.4) 08/22/18 14:50 Absolute Neuts (auto) 2.70 K/uL (1.8-6.8) 08/22/18 14:50 Absolute Lymphs (auto) 1.20 K/uL (1.0-3.4) 08/22/18 14:50 Absolute Monos (auto) 0.50 K/uL (0.2-0.8) 08/22/18 14:50 Absolute Eos (auto) 0.10 K/uL (0.0-0.4) 08/22/18 14:50 Absolute Basos (auto) 0.00 K/uL (0.0-0.1) 08/22/18 14:50 Neutrophils % 59.8 % (42.0-78.0) 08/22/18 14:50 Lymphocytes % 26.9 % (20.0-50.0) 08/22/18 14:50 Monocytes % 11.1 % (2.0-9.0) H 08/22/18 14:50 Eosinophils % 1.5 % (1.0-5.0) 08/22/18 14:50 Basophils % 0.7 % (0.0-2.0) 08/22/18 14:50 Sodium 136 mmol/L (135-145) 08/22/18 14:50 Potassium 3.8 mmol/L (3.6-5.0) 08/22/18 14:50 Chloride 102 mmol/L (101-111) 08/22/18 14:50 Carbon Dioxide 27 mmol/L (21-31) 08/22/18 14:50 Anion Gap 10.8 (12-18) L 08/22/18 14:50 BUN 11 mg/dL (7-18) 08/22/18 14:50 Creatinine 0.76 mg/dL (0.6-1.3) 08/22/18 14:50 BUN/Creatinine Ratio 14.5 (10-20) 08/22/18 14:50 Random Glucose 82 mg/dL (70-105) 08/22/18 14:50 Serum Osmolality 270.4 mOsm/L (275-295) L 08/22/18 14:50 Calcium 9.3 mg/dL (8.4-10.2) 08/22/18 14:50 Total Bilirubin 0.5 mg/dL (0.2-1.0) 08/22/18 14:50 AST 23 IU/L (10-42) 08/22/18 14:50 ALT 16 IU/L (10-60) 08/22/18 14:50 Alkaline Phosphatase 65 IU/L (42-121) 08/22/18 14:50 Serum Total Protein 6.8 gm/dL (6.4-8.2) 08/22/18 14:50 Albumin 3.8 g/dl (3.2-5.5) 08/22/18 14:50 Globulin 3.0 gm/dL (2.3-3.5) 08/22/18 14:50 Albumin/Globulin Ratio 1.3 (1.1-1.9) 08/22/18 14:50 Serum HCG, Qual Negative (NEGATIVE) 08/22/18 14:50 Urine Color Yellow (Yellow) 08/22/18 15:34 Urine Appearance Clear (Clear) 08/22/18 15:34 Urine pH 5.5 (4.5-7.8) 08/22/18 15:34 Ur Specific [place] >= 1.030 (1.005-1.030) 08/22/18 15:34 Urine Protein 30 mg/dL 08/22/18 15:34 Urine Glucose (UA) 100 mg/dL (Negative) H 08/22/18 15:34 Urine Ketones Negative mg/dL (NEGATIVE) 08/22/18 15:34 Urine Blood Negative (Negative) 08/22/18 15:34 Urine Nitrite Negative 08/22/18 15:34 Urine Bilirubin Negative (NEGATIVE) 08/22/18 15:34 Urine Urobilinogen 0.2 mg/dL (0.2-1.0) 08/22/18 15:34 Ur Leukocyte Esterase Negative (Negative) 08/22/18 15:34 Urine RBC 0-1 /hpf 08/22/18 15:34 Urine WBC 0 /hpf 08/22/18 15:34 Ur Epithelial Cells 10-20 /hpf 08/22/18 15:34 Amorphous Sediment 2+ 08/22/18 15:34 Urine Bacteria Rare 08/22/18 15:34 abdominal series is non specific REVIEWED OLD RECORDS FROM JULY 2016: CT ABDOMEN AND PELVIS WAS DONE THEN- NEGATIVE. SHE SHOULD FOLLOW UP WITH DR. JOSEPH Departure - Departure Clinical Impression: Abdominal pain Qualifiers: Abdominal location: left lower quadrant Qualified Code(s): R10.32 - Left lower quadrant pain Time of Disposition: 16:12 Disposition: Discharge to Home or Self Care Condition: Good Departure Forms: ED Discharge - Pt. Copy, Patient Portal Self Enrollment Instructions: DI for Abdominal Pain -- Child Diet: resume usual diet Referrals: Roseline Arzate NP [Primary Care Provider] - 1-2 Weeks Prescriptions: Naproxen [Naprosyn] 500 mg PO BID #10 tab Home Medications: Ambulatory Orders Albuterol Inhaler [Ventolin Hfa Inhaler] 2 puff INH QID PRN 01/30/17 Baclofen 20 mg PO BID #14 tab 07/25/18 Pantoprazole Tablet [Protonix] 40 mg PO ACBK #60 tab 07/25/18 Sucralfate Tab [Carafate Tab] 1 gm PO ACHS #60 tablet 07/25/18 Naproxen [Naprosyn] 500 mg PO BID #10 tab 08/22/18
--- NOTE | 2018-08-22 15:18 | RAD ---
EXAM DESCRIPTION: Abdomen Series CLINICAL HISTORY: ABDOMINAL PAIN COMPARISON: October 06, 2011 FINDINGS: AP supine and upright views of the abdomen show a nonspecific, nonobstructive bowel gas pattern with no evidence for free intraperitoneal air. No air-filled dilated loops of small bowel are seen. No significant air-fluid levels are identified. No obvious organomegaly is seen. No abnormal calcifications are seen in the expected location of the renal collecting systems. Single view of the chest shows cardiac silhouette and pulmonary vasculature to be within normal limits. Lungs are normally aerated and clear. Moderate scoliosis of the spine is seen with curvature of the lower thoracic spine towards the left. Severe left greater than right osteophytic changes of the hips are again seen. IMPRESSION: Nonspecific abdominal series Electronically signed by: Benito Simon MD 08/22/2018 3:15 PM CDT
[2018-08-22 16:20] VITALS: BP 103/70; O2SAT 99
== END 2018-08-22 16:29 | disposition home or self-care (01) ==
LOC: ER 13:51
DX: R10.32 Left lower quadrant pain (principal); M41.9 Scoliosis, unspecified; J45.909 Unspecified asthma, uncomplicated; K21.9 Gastro-esophageal reflux disease without esophagitis; Q87.1 Congenital malformation syndromes predominantly associated with short stature
CPT/HCPCS: 36415; 74019; 80053; 81001; 84703; 85025; J1885

== ENCOUNTER 2018-12-11 21:41 | Emergency (ER) | payer OTHER ==
[2018-12-11 21:56] VITALS: TEMP 98.2
--- NOTE | 2018-12-11 22:07 | ED.PDOC ---
History of Present Illness - General Chief Complaint: Respiratory Problem Stated Complaint: told her lips were blue Time Seen by Provider: 12/11/18 22:01 Source: RN notes reviewed, Vital Signs reviewed Additional Information: 33 YEAR OLD WHITE FEMALE PRESENTS TO THE ED FOR EVALUATION OF LIPS TURNING BLUE SHE HAS HISTORY OF NOONANS SYNDROME SHE HAS NO KNOWN HEART VALVULAR DISEASE FROM NOONANS SHE HAS HISTORY OF ASTHMA BUT NO REPORT OF SHORTNESS OF BREATH NO CHEST PAIN NO FEVER CHILLS NO PERIPHERAL EDEMA - History of Present Illness Timing/Duration: 1/2 hour Severity: mild Improving Factors: nothing Worsening Factors: nothing Associated Symptoms: denies symptoms Allergies/Adverse Reactions: Allergies NO KNOWN ALLERGY Allergy (Verified 01/30/17 16:32) Home Medications: Ambulatory Orders Albuterol Inhaler [Ventolin Hfa Inhaler] 2 puff INH QID PRN 01/30/17 Review of Systems - Review of Systems Constitutional: States: no symptoms reported EENTM: States: no symptoms reported Respiratory: States: no symptoms reported Cardiology: States: no symptoms reported Gastrointestinal/Abdominal: States: no symptoms reported Genitourinary: States: no symptoms reported Musculoskeletal: States: no symptoms reported Skin: States: no symptoms reported Neurological: States: no symptoms reported Endocrine: States: no symptoms reported, intolerance to heat Past Medical History (General) - Patient Medical History Hx Seizures: No Hx Stroke: No Hx Dementia: No Hx Asthma: Yes Hx of COPD: No Hx Cardiac Disorders: No Hx Congestive Heart Failure: No Hx Pacemaker: No Hx Hypertension: No Hx Thyroid Disease: No Hx Diabetes: No Hx Gastroesophageal Reflux: Yes Hx Renal Disease: No Hx Cancer: No Hx of HIV: No Hx Hepatitis C: No Hx MRSA: No - Vaccination History Hx Tetanus, Diphtheria Vaccination: Yes Hx Influenza Vaccination: Yes Hx Pneumococcal Vaccination: No Immunizations Up to Date: No - Social History Hx Tobacco Use: No Hx Chewing Tobacco Use: No Hx Alcohol Use: No Hx Substance Use: No Hx Substance Use Treatment: No Hx Depression: Yes Hx Physical Abuse: No Hx Emotional Abuse: No Hx Suspected Abuse: No - Female History Hx Last Menstrual Period: 07/09/18 Patient : No Expected Date of Delivery:: 02/22/15 Family Medical History - Family History Mother Living Status: Still Living Hx Family Asthma: No Hx Family Congestive Heart Failure: No Hx Family Hypertension: Yes Hx Family Stroke: No Hx Cardiac Disease: No Hx Family Diabetes: Yes Hx Family Cancer: Yes Father Family History: Unknown Living Status: Unknown Physical Exam - Physical Exam General Appearance: Comfortable Eye Exam: bilateral normal Ears, Nose, Throat: hearing grossly normal, normal ENT inspection, normal pharynx Neck: non-tender, full range of motion, supple Respiratory: chest non-tender, lungs clear, no respiratory distress, no accessory muscle use, respiratory distress Cardiovascular/Chest: normal peripheral pulses, regular rate, rhythm, no edema, no gallop, no JVD, no murmur Gastrointestinal/Abdominal: normal bowel sounds, non tender, soft, no organomegaly, no pulsatile mass 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 Copy, Patient Portal Self Enrollment Referrals: Roseline Arzate NP [Primary Care Provider] - 1-2 Weeks Home Medications: Ambulatory Orders Albuterol Inhaler [Ventolin Hfa Inhaler] 2 puff INH QID PRN 01/30/17
[2018-12-11 22:37] VITALS: BP 116/71; O2SAT 99
== END 2018-12-11 22:34 | disposition home or self-care (01) ==
LOC: ER 21:41
DX: R23.0 Cyanosis (principal); Q87.1 Congenital malformation syndromes predominantly associated with short stature; F32.9 Major depressive disorder, single episode, unspecified; J45.909 Unspecified asthma, uncomplicated; K21.9 Gastro-esophageal reflux disease without esophagitis; Z32.02 Encounter for pregnancy test, result negative; Z79.899 Other long term (current) drug therapy

== ENCOUNTER 2019-01-24 21:11 | Emergency (ER) | payer MEDICARE, OTHER ==
[2019-01-24] MEDS ORDERED: IBUPROFEN 200 MG TAB PO ONE (21:37)
[2019-01-24] MEDS ORDERED: SODIUM CHLORIDE 0.9% 1000ML 1,000 ML IVS ONE (23:00)
[2019-01-25] MEDS ORDERED: cefTRIAXone SODIUM 2 GM in SODIUM CHL 0.9% 100ML MINI-BAG 100 ML IVPB ONE (00:04)
[2019-01-25] MEDS ORDERED: SODIUM CHL 0.9% 100ML MINI-BAG 100 ML IVPB ONE (00:16)
[2019-01-25 01:12] VITALS: O2SAT 94
[2019-01-25 01:59] VITALS: BP 101/63; TEMP 98.1
== END 2019-01-25 01:59 | disposition home or self-care (01) ==
LOC: ER 21:11
DX: R50.9 Fever, unspecified (principal); R78.81 Bacteremia; R05 Cough; R11.0 Nausea; J45.909 Unspecified asthma, uncomplicated; K21.9 Gastro-esophageal reflux disease without esophagitis; F32.9 Major depressive disorder, single episode, unspecified; Z98.890 Other specified postprocedural states; Z79.899 Other long term (current) drug therapy; Z91.041 Radiographic dye allergy status
CPT/HCPCS: 36415; 71045; 74176; 80053; 81001; 83605; 85025; 87040; 87070; 87502; 87880; J0696; J7030; J7050

== ENCOUNTER 2019-02-19 15:39 | Emergency (ER) | payer OTHER ==
[2019-02-19 16:38] VITALS: BP 104/83; TEMP 98.2; O2SAT 97
--- NOTE | 2019-02-19 16:41 | ED.PDOC ---
History of Present Illness - General Chief Complaint: Skin/Abrasion/Tear Stated Complaint: abscess Time Seen by Provider: 02/19/19 16:18 - History of Present Illness Initial Comments: Patient is a 33 year old presenting c/o a boil to her labia. Says it became swollen and painful two days ago, and that yesterday it opened up and started draining pus. Reports pain when she walks. denies fevers or chills. Allergies/Adverse Reactions: Allergies Iodine Adverse Reaction (Intermediate, Verified 02/19/19 16:37) Nausea Patient stated that she has a reaction to CT contrast that results in a hot feeling with nausea and vomitting. Home Medications: Ambulatory Orders Albuterol Inhaler [Ventolin Hfa Inhaler] 2 puff INH QID PRN 01/30/17 Sulfamethoxazole-Trimethoprim [Bactrim Ds 800-160 mg] 1 tab PO BID 7 Days #14 tab 02/19/19 Review of Systems - Review of Systems Constitutional: States: no symptoms reported EENTM: States: no symptoms reported Respiratory: States: no symptoms reported Cardiology: States: no symptoms reported Gastrointestinal/Abdominal: States: no symptoms reported Genitourinary: States: no symptoms reported Musculoskeletal: States: no symptoms reported Skin: States: lesions, other - abscess Neurological: States: no symptoms reported Endocrine: States: no symptoms reported Hematologic/Lymphatic: States: no symptoms reported All other Systems: Reviewed and Negative Past Medical History (General) - Patient Medical History Hx Seizures: No Hx Stroke: No Hx Dementia: No Hx Asthma: Yes Hx of COPD: No Hx Cardiac Disorders: No Hx Congestive Heart Failure: No Hx Pacemaker: No Hx Hypertension: No Hx Thyroid Disease: No Hx Diabetes: No Hx Gastroesophageal Reflux: Yes Hx Renal Disease: No Hx Cancer: No Hx of HIV: No Hx Hepatitis C: No Hx MRSA: No Surgical History: other - Vaccination History Hx Tetanus, Diphtheria Vaccination: Yes Hx Influenza Vaccination: Yes Hx Pneumococcal Vaccination: No - Social History Hx Tobacco Use: No Hx Chewing Tobacco Use: No Hx Alcohol Use: No Hx Substance Use: No Hx Substance Use Treatment: No Hx Depression: Yes Hx Physical Abuse: No Hx Emotional Abuse: No Hx Suspected Abuse: No - Female History Hx Last Menstrual Period: 07/09/18 Patient : No Expected Date of Delivery:: 02/22/15 - Triage Comment ED Triage Comment: LMP january 2019 Family Medical History - Family History Mother Living Status: Still Living Hx Family Asthma: No Hx Family Congestive Heart Failure: No Hx Family Hypertension: Yes Hx Family Stroke: No Hx Cardiac Disease: No Hx Family Diabetes: Yes Hx Family Cancer: Yes Father Family History: Unknown Living Status: Unknown Physical Exam - Physical Exam General Appearance: Alert, Comfortable Ears, Nose, Throat: hearing grossly normal, normal ENT inspection Neck: non-tender, supple Respiratory: lungs clear, normal breath sounds Cardiovascular/Chest: regular rate, rhythm, no edema Gastrointestinal/Abdominal: non tender, soft Back Exam: normal inspection Extremity: normal range of motion, non-tender Neurologic: no motor/sensory deficits, alert, normal mood/affect Skin Exam: normal color, warm/dry Comments: 1cm pustule to R labia with serous drainage. No sig erythema or swelling Progress - Progress Progress: 02/19/19 16:42 MDM: Patient presenting with small R labial abscess. Wound is already open and draining and does not need I&D. Will treat with antibiotics. Jefferson Rajan MD #[id number] Departure - Departure Clinical Impression: Labial abscess Disposition: Discharge to Home or Self Care Departure Forms: ED Discharge - Pt. Copy, Patient Portal Self Enrollment Instructions: DI for Abrasion, Boil (DC) Referrals: Rosleine Arzate, MAILER [Primary Care Provider] - 1-2 Weeks Prescriptions: Sulfamethoxazole-Trimethoprim [Bactrim Ds 800-160 mg] 1 tab PO BID 7 Days #14 tab Home Medications: Ambulatory Orders Albuterol Inhaler [Ventolin Hfa Inhaler] 2 puff INH QID PRN 01/30/17 Sulfamethoxazole-Trimethoprim [Bactrim Ds 800-160 mg] 1 tab PO BID 7 Days #14 tab 02/19/19
== END 2019-02-19 16:59 | disposition home or self-care (01) ==
LOC: ER 15:39
DX: N76.4 Abscess of vulva (principal); J45.909 Unspecified asthma, uncomplicated; F32.9 Major depressive disorder, single episode, unspecified; K21.9 Gastro-esophageal reflux disease without esophagitis; Z79.899 Other long term (current) drug therapy; Z91.041 Radiographic dye allergy status

== ENCOUNTER 2019-03-06 19:44 | Emergency (ER) | payer OTHER ==
[2019-03-06] MEDS ORDERED: CLINDAMYCIN PHOSPHATE 150 MG/ML VIAL IM ONE (21:53)
--- NOTE | 2019-03-06 21:56 | ED.PDOC ---
History of Present Illness - General Chief Complaint: Upper Extremity Injury Stated Complaint: left elbow pain and redness Time Seen by Provider: 03/06/19 21:53 Source: patient, RN notes reviewed, Vital Signs reviewed, family - friend Exam Limitations: no limitations - History of Present Illness Initial Comments: patient is a 33-year-old white female who presents with complaints of left elbow pain, swelling and redness. This started late yesterday evening and has progressively gotten worse over the day. Patient denies any fever, chills, nausea, vomiting, diarrhea, chest pain, shortness of breath, paresthesias or weakness. Her period worse with palpation. Better when she rests it or puts ice on it. Timing/Duration: 24 hours Severity: moderate Improving Factors: cold therapy, immobilization Worsening Factors: movement Associated Symptoms: denies symptoms Allergies/Adverse Reactions: Allergies Iodine Adverse Reaction (Intermediate, Verified 02/19/19 16:37) Nausea Patient stated that she has a reaction to CT contrast that results in a hot feeling with nausea and vomitting. Home Medications: Ambulatory Orders Albuterol Inhaler [Ventolin Hfa Inhaler] 2 puff INH QID PRN 01/30/17 Sulfamethoxazole-Trimethoprim [Bactrim Ds 800-160 mg] 1 tab PO BID 7 Days #14 tab 02/19/19 Clindamycin HCl 300 mg PO Q6HRS #40 cap 03/06/19 Review of Systems - Review of Systems Constitutional: States: no symptoms reported, see HPI EENTM: States: no symptoms reported, see HPI Respiratory: States: no symptoms reported Cardiology: States: no symptoms reported Gastrointestinal/Abdominal: States: no symptoms reported Genitourinary: States: no symptoms reported Musculoskeletal: States: see HPI, other - soft tissue pain and swelling. Skin: States: see HPI, change in color, lesions Neurological: States: no symptoms reported All other Systems: Reviewed and Negative Past Medical History (General) - Patient Medical History Hx Seizures: No Hx Stroke: No Hx Dementia: No Hx Asthma: Yes Hx of COPD: No Hx Cardiac Disorders: No Hx Congestive Heart Failure: No Hx Pacemaker: No Hx Hypertension: No Hx Thyroid Disease: No Hx Diabetes: No Hx Gastroesophageal Reflux: Yes Hx Renal Disease: No Hx Cancer: No Hx of HIV: No Hx Hepatitis C: No Hx MRSA: No - Vaccination History Hx Tetanus, Diphtheria Vaccination: Yes Hx Influenza Vaccination: Yes Hx Pneumococcal Vaccination: No - Social History Hx Tobacco Use: No Hx Chewing Tobacco Use: No Hx Alcohol Use: No Hx Substance Use: No Hx Substance Use Treatment: No Hx Depression: Yes Hx Physical Abuse: No Hx Emotional Abuse: No Hx Suspected Abuse: No - Female History Hx Last Menstrual Period: 07/09/18 Patient : No Expected Date of Delivery:: 02/22/15 Family Medical History - Family History Mother Living Status: Still Living Hx Family Asthma: No Hx Family Congestive Heart Failure: No Hx Family Hypertension: Yes Hx Family Stroke: No Hx Cardiac Disease: No Hx Family Diabetes: Yes Hx Family Cancer: Yes Father Family History: Unknown Living Status: Unknown Physical Exam - Physical Exam General Appearance: Alert, Anxious, Obese, Well Developed, Well Groomed, Well Hydrated, Well Nourished Eye Exam: bilateral normal Ears, Nose, Throat: hearing grossly normal, normal ENT inspection, normal pharynx Neck: non-tender, full range of motion, supple, normal inspection Respiratory: chest non-tender, lungs clear, normal breath sounds, no respiratory distress Cardiovascular/Chest: normal peripheral pulses, regular rate, rhythm, no edema, no gallop, no JVD, no murmur Peripheral Pulses: radial,right: 2+, radial,left: 2+ Gastrointestinal/Abdominal: normal bowel sounds, non tender, soft Back Exam: normal inspection, no CVA tenderness, no vertebral tenderness Extremity: normal range of motion, normal capillary refill, inflammation, swelling, other - left elbow with some mild swelling with tenderness to palpation and redness. Additionally she has since a sending lymphangitis on the left medial distal upper arm. 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 Plan discharge home with follow-up with PCP. I discussed the plan of care with the patient she voices understanding and agreement. I will send the patient home with a prescription for clindamycin. Saud Pradhan M.D. #[id number] Departure - Departure Clinical Impression: Cellulitis of left elbow, Lymphangitis Bursitis Qualifiers: Bursitis location: elbow Elbow bursitis location: olecranon bursitis Laterality: left Qualified Code(s): M70.22 - Olecranon bursitis, left elbow Time of Disposition: 22:02 Disposition: Discharge to Home or Self Care Condition: Good Departure Forms: ED Discharge - Pt. Copy, Patient Portal Self Enrollment Instructions: DI for Elbow Bursitis, Cellulitis (Skin Infection), Adult (DC), Lymphadenitis (DC) Referrals: Roseline Arzate NP [Primary Care Provider] - 1-2 Weeks Prescriptions: Clindamycin HCl 300 mg PO Q6HRS #40 cap Home Medications: Ambulatory Orders Albuterol Inhaler [Ventolin Hfa Inhaler] 2 puff INH QID PRN 01/30/17 Sulfamethoxazole-Trimethoprim [Bactrim Ds 800-160 mg] 1 tab PO BID 7 Days #14 tab 02/19/19 Clindamycin HCl 300 mg PO Q6HRS #40 cap 03/06/19
[2019-03-06 22:28] VITALS: BP 138/81; TEMP 98.1; O2SAT 98
== END 2019-03-06 22:31 | disposition home or self-care (01) ==
LOC: ER 19:44
DX: L03.114 Cellulitis of left upper limb (principal); I89.1 Lymphangitis; M70.22 Olecranon bursitis, left elbow; F32.9 Major depressive disorder, single episode, unspecified; K21.9 Gastro-esophageal reflux disease without esophagitis; J45.909 Unspecified asthma, uncomplicated; Z91.041 Radiographic dye allergy status

== ENCOUNTER 2019-04-16 10:50 | Emergency (ER) | payer OTHER ==
[2019-04-16] MEDS ORDERED: ONDANSETRON ODT 8 MG TAB SL ONE (11:12)
[2019-04-16] MEDS ORDERED: SUCRALFATE 1 GM/10 ML 1 GM UD PO ONE (11:12)
--- NOTE | 2019-04-16 12:04 | ED.PDOC ---
History of Present Illness - General Chief Complaint: General Stated Complaint: Cough, congestion Time Seen by Provider: 04/16/19 11:12 Source: patient Exam Limitations: no limitations - History of Present Illness Initial Comments: the patient is a 33-year-old female presenting to the emergency room secondary to cough congestion and some nausea for the last 2 days. She reports a low-grade fever and a mild sore throat. Mild headache. Generalized body aches. No diarrhea. No vomiting but she has had nausea. No rash. No chest pain. Her daughter is actually just getting over similar symptoms. Timing/Duration: other - 48 hours Severity: moderate Improving Factors: nothing Worsening Factors: nothing Associated Symptoms: cough, fever/chills, headaches, loss of appetite, malaise, nausea/vomiting Allergies/Adverse Reactions: Allergies Iodine Adverse Reaction (Intermediate, Verified 02/19/19 16:37) Nausea Patient stated that she has a reaction to CT contrast that results in a hot feeling with nausea and vomitting. Home Medications: Ambulatory Orders Ondansetron Odt [Zofran ODT] 4 mg PO Q8HR PRN #5 tab 04/16/19 Sucralfate Tab [Carafate Tab] 1 gm PO QID #30 tab 04/16/19 Review of Systems - Review of Systems Constitutional: States: fever, malaise EENTM: States: nose congestion, throat pain Respiratory: States: cough Cardiology: States: no symptoms reported Gastrointestinal/Abdominal: States: nausea Genitourinary: States: no symptoms reported Musculoskeletal: States: see HPI Skin: States: no symptoms reported Neurological: States: headache Endocrine: States: no symptoms reported All other Systems: No Change from Baseline Past Medical History (General) - Patient Medical History Hx Seizures: No Hx Stroke: No Hx Dementia: No Hx Asthma: Yes Hx of COPD: No Hx Cardiac Disorders: No Hx Congestive Heart Failure: No Hx Pacemaker: No Hx Hypertension: No Hx Thyroid Disease: No Hx Diabetes: No Hx Gastroesophageal Reflux: Yes Hx Renal Disease: No Hx Cancer: No Hx of HIV: No Hx Hepatitis C: No Hx MRSA: No Surgical History: other - Vaccination History Hx Tetanus, Diphtheria Vaccination: Yes Hx Influenza Vaccination: No Hx Pneumococcal Vaccination: No - Social History Hx Tobacco Use: No Hx Chewing Tobacco Use: No Hx Alcohol Use: No Hx Substance Use: No Hx Substance Use Treatment: No Hx Depression: Yes Hx Physical Abuse: No Hx Emotional Abuse: No Hx Suspected Abuse: No - Female History Patient is a Female of Child Bearing Age (10 -59 yrs old): Yes Hx Last Menstrual Period: 07/09/18 Patient : No Expected Date of Delivery:: 02/22/15 Family Medical History - Family History Mother Living Status: Still Living Hx Family Asthma: No Hx Family Congestive Heart Failure: No Hx Family Hypertension: Yes Hx Family Stroke: No Hx Cardiac Disease: No Hx Family Diabetes: Yes Hx Family Cancer: Yes Father Family History: Unknown Living Status: Unknown Physical Exam - Physical Exam General Appearance: Alert, Comfortable, No apparent distress Eye Exam: bilateral normal Ears, Nose, Throat: hearing grossly normal, nasal congestion, pharyngeal erythema - mild Neck: full range of motion, supple Respiratory: lungs clear, normal breath sounds, no respiratory distress, no accessory muscle use Cardiovascular/Chest: normal peripheral pulses, regular rate, rhythm, no edema Peripheral Pulses: radial,right: 2+, radial,left: 2+ Gastrointestinal/Abdominal: non tender, soft Rectal Exam: deferred Back Exam: no CVA tenderness, no vertebral tenderness Extremity: non-tender, no pedal edema, normal capillary refill 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 She needs to keep herself well hydrated and maintain a bland diet. Tylenol can be used for low-grade fever and body aches. Symptoms will most likely last another 3 or 4 days. She'll be written for Zofran to control any nausea or vomiting. She will also be written for Carafate for the next week for any gastritis from the virus. ER warnings are given. - Results/Orders Results/Orders: rapid flu was negative. Laboratory Results - last 24 hr 04/16/19 11:24 Group A Strep Rapid Negative Departure - Departure Clinical Impression: Viral syndrome Disposition: Discharge to Home or Self Care Condition: Fair Departure Forms: ED Discharge - Pt. Copy, Patient Portal Self Enrollment Instructions: Viral Gastroenteritis, Adult (DC) Diet: bland diet Activity: increase activity as tolerated Referrals: Roseline Arzate NP [Primary Care Provider] - 1-2 Weeks Prescriptions: Ondansetron Odt [Zofran ODT] 4 mg PO Q8HR PRN #5 tab PRN Reason: Nausea--Moderate Sucralfate Tab [Carafate Tab] 1 gm PO QID #30 tab Home Medications: Ambulatory Orders Ondansetron Odt [Zofran ODT] 4 mg PO Q8HR PRN #5 tab 04/16/19 Sucralfate Tab [Carafate Tab] 1 gm PO QID #30 tab 04/16/19 Additional Instructions: the patient's 33-year-old female presenting to emergency room secondary to what appears to be a viral syndrome that she likely caught from her daughter. She needs to keep herself well hydrated and maintain a bland diet. Tylenol can be used for low-grade fever and body aches. Symptoms will most likely last another 3 or 4 days. She'll be written for Zofran to control any nausea or vomiting. She will also be written for Carafate for the next week for any gastritis from the virus. ER warnings are given.
[2019-04-16 12:48] VITALS: BP 119/81
[2019-04-16 13:33] VITALS: TEMP 98; O2SAT 96
== END 2019-04-16 13:15 | disposition home or self-care (01) ==
LOC: ER 10:50
DX: B34.9 Viral infection, unspecified (principal); J45.909 Unspecified asthma, uncomplicated; F32.9 Major depressive disorder, single episode, unspecified; K21.9 Gastro-esophageal reflux disease without esophagitis; Z91.041 Radiographic dye allergy status

== ENCOUNTER 2019-04-23 11:11 | Emergency (ER) | payer OTHER ==
--- NOTE | 2019-04-23 11:52 | ED.PDOC ---
History of Present Illness - General Chief Complaint: General Time Seen by Provider: 04/23/19 11:44 Source: patient, RN notes reviewed, Vital Signs reviewed Exam Limitations: no limitations Additional Information: this is a 33-year-old female who presents to the emergency room with complaints of sore throat urinary frequency and cough. She states that she doesn't know if she had a flu shot or not. She denies any dysuria but admits to urinary frequency. No CVA tenderness or fever has been reported. She states that her throat started hurting 2 days ago. She states that she has a history of asthma and takes medications for it. she is also requesting an hCG. - History of Present Illness Allergies/Adverse Reactions: Allergies Iodine Adverse Reaction (Intermediate, Verified 02/19/19 16:37) Nausea Patient stated that she has a reaction to CT contrast that results in a hot feeling with nausea and vomitting. Home Medications: Ambulatory Orders Ondansetron Odt [Zofran ODT] 4 mg PO Q8HR PRN #5 tab 04/16/19 Sucralfate Tab [Carafate Tab] 1 gm PO QID #30 tab 04/16/19 Loratadine [Claritin] 10 mg PO DAILY #30 cap 04/23/19 Norgestimate-Ethinyl Estradiol [Tri-Sprintec] 1 tab PO DAILY 04/23/19 Review of Systems - Review of Systems Constitutional: States: malaise. Denies: chills, diaphoresis, fever EENTM: States: throat pain. Denies: ear pain, nose pain, nose congestion, throat swelling, mouth pain Respiratory: States: cough. Denies: orthopnea, short of breath, stridor, wheezing Cardiology: States: no symptoms reported Gastrointestinal/Abdominal: States: no symptoms reported Genitourinary: States: frequency, other - LMP 04/03/19. Denies: discharge, dysuria, hematuria Musculoskeletal: States: no symptoms reported Skin: States: no symptoms reported Neurological: States: no symptoms reported Endocrine: States: no symptoms reported Hematologic/Lymphatic: States: no symptoms reported All other Systems: Reviewed and Negative Past Medical History (General) - Patient Medical History Hx Seizures: No Hx Stroke: No Hx Dementia: No Hx Asthma: Yes Hx of COPD: No Hx Cardiac Disorders: No Hx Congestive Heart Failure: No Hx Pacemaker: No Hx Hypertension: No Hx Thyroid Disease: No Hx Diabetes: No Hx Gastroesophageal Reflux: Yes Hx Renal Disease: No Hx Cancer: No Hx of HIV: No Hx Hepatitis C: No Hx MRSA: No - Vaccination History Hx Tetanus, Diphtheria Vaccination: Yes Hx Influenza Vaccination: No Hx Pneumococcal Vaccination: No - Social History Hx Tobacco Use: No Hx Chewing Tobacco Use: No Hx Alcohol Use: No Hx Substance Use: No Hx Substance Use Treatment: No Hx Depression: Yes Hx Physical Abuse: No Hx Emotional Abuse: No Hx Suspected Abuse: No - Female History Hx Last Menstrual Period: 07/09/18 Patient : No Expected Date of Delivery:: 02/22/15 Family Medical History - Family History Mother Living Status: Still Living Hx Family Asthma: No Hx Family Congestive Heart Failure: No Hx Family Hypertension: Yes Hx Family Stroke: No Hx Cardiac Disease: No Hx Family Diabetes: Yes Hx Family Cancer: Yes Father Family History: Unknown Living Status: Unknown Physical Exam - Physical Exam General Appearance: Alert, Comfortable, No apparent distress Eye Exam: bilateral normal Ears, Nose, Throat: hearing grossly normal, normal ENT inspection, pharyngeal erythema, other - post nasal drip noted Neck: non-tender, full range of motion, supple, normal inspection Respiratory: chest non-tender, lungs clear, normal breath sounds, no respiratory distress, no accessory muscle use Cardiovascular/Chest: normal peripheral pulses, regular rate, rhythm, no edema, no gallop, no JVD, no murmur Gastrointestinal/Abdominal: normal bowel sounds, non tender, soft, no organomegaly, no pulsatile mass Rectal Exam: deferred Back Exam: normal inspection, no CVA tenderness, no vertebral tenderness Extremity: normal range of motion, non-tender, normal inspection, no pedal edema 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, no motor/sensory deficits, alert, normal mood/affect, oriented x 3 Skin Exam: normal color, warm/dry Lymphatic: no adenopathy Progress - Results/Orders Results/Orders: Laboratory Tests 04/23/19 04/23/19 04/23/19 11:40 11:40 12:00 Urine Color Yellow Urine Appearance Clear Urine pH 6.5 Ur Specific [place] 1.015 Urine Protein Negative Urine Glucose (UA) 100 H Urine Ketones Negative Urine Blood Negative Urine Nitrite Negative Urine Bilirubin Negative Urine Urobilinogen 0.2 Ur Leukocyte Esterase Negative Urine RBC 0 Urine WBC 0-1 Ur Epithelial Cells 1-3 Urine Bacteria Rare Urine HCG, Qual Negative Group A Strep Rapid Negative Departure - Departure Clinical Impression: Upper respiratory infection, Pharyngitis Time of Disposition: 13:50 Disposition: Discharge to Home or Self Care Condition: Good Departure Forms: ED Discharge - Pt. Copy, Patient Portal Self Enrollment Referrals: Radha Bartlett FNP [Primary Care Provider] - 1-2 Weeks Prescriptions: Loratadine [Claritin] 10 mg PO DAILY #30 cap Home Medications: Ambulatory Orders Ondansetron Odt [Zofran ODT] 4 mg PO Q8HR PRN #5 tab 04/16/19 Sucralfate Tab [Carafate Tab] 1 gm PO QID #30 tab 04/16/19 Loratadine [Claritin] 10 mg PO DAILY #30 cap 04/23/19 Norgestimate-Ethinyl Estradiol [Tri-Sprintec] 1 tab PO DAILY 04/23/19 Additional Instructions: use antihistamines as directed. Increase fluid consumption. Recommend flu shot. Follow-up with PCP as needed. Return to ER if needed
[2019-04-23 14:04] VITALS: BP 106/52; TEMP 98.6; O2SAT 98
== END 2019-04-23 13:55 | disposition home or self-care (01) ==
LOC: ER 11:11
DX: J02.9 Acute pharyngitis, unspecified (principal); R35.0 Frequency of micturition; R05 Cough; F32.9 Major depressive disorder, single episode, unspecified; J45.909 Unspecified asthma, uncomplicated; K21.9 Gastro-esophageal reflux disease without esophagitis; Z32.02 Encounter for pregnancy test, result negative; Z79.899 Other long term (current) drug therapy; Z91.041 Radiographic dye allergy status

== ENCOUNTER 2019-07-13 18:25 | Emergency (ER) | payer OTHER ==
--- NOTE | 2019-07-13 19:08 | ED.PDOC ---
History of Present Illness - General Chief Complaint: Skin/Abrasion/Tear Stated Complaint: draining left labia Time Seen by Provider: 07/13/19 18:30 Source: patient Exam Limitations: no limitations - History of Present Illness Initial Comments: The patient is a 33-year-old female presented emergency room secondary to drainage from a previous Bartholin cyst incision site. She has had several infections at the site of the last couple of years. There is mild swelling but no obvious cavity or abscess formation. Mild erythema. Low-grade fever. It is been draining for the last 4 or 5 days. Again nothing to drain at this time. Timing/Duration: other Severity: moderate Improving Factors: nothing Worsening Factors: nothing Associated Symptoms: malaise Allergies/Adverse Reactions: Allergies Iodine Adverse Reaction (Intermediate, Verified 02/19/19 16:37) Nausea Patient stated that she has a reaction to CT contrast that results in a hot feeling with nausea and vomitting. Home Medications: Ambulatory Orders Ondansetron Odt [Zofran ODT] 4 mg PO Q8HR PRN #5 tab 04/16/19 Sucralfate Tab [Carafate Tab] 1 gm PO QID #30 tab 04/16/19 Loratadine [Claritin] 10 mg PO DAILY #30 cap 04/23/19 Norgestimate-Ethinyl Estradiol [Tri-Sprintec] 1 tab PO DAILY 04/23/19 Amoxicillin & Pot Clavulanate [Augmentin Tab] 875 mg PO BID #14 tab 07/13/19 Clindamycin HCl 300 mg PO Q8HR #21 cap 07/13/19 Review of Systems - Review of Systems Constitutional: States: malaise EENTM: States: no symptoms reported Respiratory: States: no symptoms reported Cardiology: States: no symptoms reported Gastrointestinal/Abdominal: States: no symptoms reported Genitourinary: States: see HPI Musculoskeletal: States: no symptoms reported Skin: States: no symptoms reported Neurological: States: no symptoms reported Endocrine: States: no symptoms reported All other Systems: No Change from Baseline Past Medical History (General) - Patient Medical History Hx Seizures: No Hx Stroke: No Hx Dementia: No Hx Asthma: Yes Hx of COPD: No Hx Cardiac Disorders: No Hx Congestive Heart Failure: No Hx Pacemaker: No Hx Hypertension: No Hx Thyroid Disease: No Hx Diabetes: No Hx Gastroesophageal Reflux: Yes Hx Renal Disease: No Hx Cancer: No Hx of HIV: No Hx Hepatitis C: No Hx MRSA: No - Vaccination History Hx Tetanus, Diphtheria Vaccination: Yes Hx Influenza Vaccination: No Hx Pneumococcal Vaccination: No - Social History Hx Tobacco Use: No Hx Chewing Tobacco Use: No Hx Alcohol Use: No Hx Substance Use: No Hx Substance Use Treatment: No Hx Depression: Yes Hx Physical Abuse: No Hx Emotional Abuse: No Hx Suspected Abuse: No - Female History Hx Last Menstrual Period: 07/09/18 Patient : No Expected Date of Delivery:: 02/22/15 Family Medical History - Family History Mother Living Status: Still Living Hx Family Asthma: No Hx Family Congestive Heart Failure: No Hx Family Hypertension: Yes Hx Family Stroke: No Hx Cardiac Disease: No Hx Family Diabetes: Yes Hx Family Cancer: Yes Father Family History: Unknown Living Status: Unknown Physical Exam - Physical Exam General Appearance: Alert, Comfortable, No apparent distress Eye Exam: bilateral normal Ears, Nose, Throat: hearing grossly normal, normal pharynx Neck: non-tender, supple Respiratory: no respiratory distress, no accessory muscle use Cardiovascular/Chest: normal peripheral pulses, no edema Peripheral Pulses: dorsalis pedis,right: 2+, dorsalis pedis,left: 2+ Gastrointestinal/Abdominal: non tender, soft Rectal Exam: deferred, other - See history of present illness. 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 The gland has been incised before with previous infection and is draining appropriately. The patient is going to be placed on Augmentin and clindamycin to help remove any infection. She needs to follow-up with her oil developer once infection is cleared in order to excise the draining tract and the residual gland that keeps becoming infected. She needs to take the antibiotics with food. She does need to be aware that antibiotics can decrease the effectiveness of her control so a secondary form should be used. ER warnings are given. kennedy smith [id number] Departure - Departure Clinical Impression: Bartholin's gland infection Disposition: Discharge to Home or Self Care Condition: Fair Departure Forms: ED Discharge - Pt. Copy, Patient Portal Self Enrollment Instructions: DI for Wound Infection Diet: regular diet Activity: increase activity as tolerated Referrals: Gi Abdullahi MD [Primary Care Provider] - 1-2 Weeks Prescriptions: Clindamycin HCl 300 mg PO Q8HR #21 cap Amoxicillin & Pot Clavulanate [Augmentin Tab] 875 mg PO BID #14 tab Home Medications: Ambulatory Orders Ondansetron Odt [Zofran ODT] 4 mg PO Q8HR PRN #5 tab 04/16/19 Sucralfate Tab [Carafate Tab] 1 gm PO QID #30 tab 04/16/19 Loratadine [Claritin] 10 mg PO DAILY #30 cap 04/23/19 Norgestimate-Ethinyl Estradiol [Tri-Sprintec] 1 tab PO DAILY 04/23/19 Amoxicillin & Pot Clavulanate [Augmentin Tab] 875 mg PO BID #14 tab 07/13/19 Clindamycin HCl 300 mg PO Q8HR #21 cap 07/13/19 Additional Instructions: The patient is a 33-year-old female presented emergency room secondary to infection of the residual Bartholin's gland on her left. The gland has been incised before with previous infection and is draining appropriately. The patient is going to be placed on Augmentin and clindamycin to help remove any infection. She needs to follow-up with her oil developer once infection is cleared in order to excise the draining tract and the residual gland that keeps becoming infected. She needs to take the antibiotics with food. She does need to be aware that antibiotics can decrease the effectiveness of her control so a secondary form should be used. ER warnings are given.
[2019-07-13] MEDS: AMOXICILLIN & POT CLAVULANATE 875 MG TAB PO ONE (19:23)
[2019-07-13] MEDS: CLINDAMYCIN HCL CAP 150 MG CAP PO ONE (19:23)
[2019-07-13] MEDS: ACETAMINOPHEN 325 MG TAB PO ONE (19:23)
[2019-07-13 19:33] VITALS: BP 116/75; TEMP 100.6; O2SAT 99
== END 2019-07-13 19:30 | disposition home or self-care (01) ==
LOC: ER 18:25
DX: N75.8 Other diseases of Bartholin's gland (principal); J45.909 Unspecified asthma, uncomplicated; K21.9 Gastro-esophageal reflux disease without esophagitis; F32.9 Major depressive disorder, single episode, unspecified; Z91.041 Radiographic dye allergy status; Z79.899 Other long term (current) drug therapy

== ENCOUNTER 2019-08-06 | Emergency (ER) | payer OTHER | END 2019-08-07 01:37 | disposition home or self-care (01) | DX: R51 Headache (principal); R11.0 Nausea; J45.909 Unspecified asthma, uncomplicated; K21.9 Gastro-esophageal reflux disease without esophagitis; F32.9 Major depressive disorder, single episode, unspecified; Z79.899 Other long term (current) drug therapy; Z91.041 Radiographic dye allergy status | CPT/HCPCS: A4216; J1885; J2550; J2765; J7030 ==

== ENCOUNTER 2019-09-27 16:31 | Emergency (ER) | payer OTHER ==
--- NOTE | 2019-09-27 17:14 | ED.PDOC ---
History of Present Illness - General Chief Complaint: Neuro Symptoms/Deficits Stated Complaint: bilateral lower ext numbness Time Seen by Provider: 09/27/19 17:09 Source: patient, RN notes reviewed, Vital Signs reviewed Exam Limitations: no limitations Additional Information: 34yo F with reported new inability to feel legs x 2 days. Reports was seen by PCP today, referred to ED for numbness for a couple days. Associated with rash to medial aspect of upper and lower legs for the past 2 weeks. Patient denies IVDU, fever, bladder/fecal incontinence/retention, saddle anesthesia. Does rep ort that she has some symptoms in her left arm as well. Ambulatory but reportedly weak in lower extremities. Denies recent travel, recent change in medication, sick contacts with similar rash, new exposure, recent hiking/camping. - History of Present Illness Allergies/Adverse Reactions: Allergies Iodine Adverse Reaction (Intermediate, Verified 09/27/19 17:10) Nausea Patient stated that she has a reaction to CT contrast that results in a hot feeling with nausea and vomitting. Home Medications: Ambulatory Orders Ondansetron Odt [Zofran ODT] 4 mg PO Q8HR PRN #5 tab 04/16/19 Sucralfate Tab [Carafate Tab] 1 gm PO QID #30 tab 04/16/19 Loratadine [Claritin] 10 mg PO DAILY #30 cap 04/23/19 Norgestimate-Ethinyl Estradiol [Tri-Sprintec] 1 tab PO DAILY 04/23/19 Amoxicillin & Pot Clavulanate [Augmentin Tab] 875 mg PO BID #14 tab 07/13/19 Clindamycin HCl 300 mg PO Q8HR #21 cap 07/13/19 Review of Systems - Review of Systems Constitutional: States: no symptoms reported EENTM: States: no symptoms reported Respiratory: States: no symptoms reported Cardiology: States: no symptoms reported Gastrointestinal/Abdominal: States: no symptoms reported Musculoskeletal: States: no symptoms reported Skin: States: rash Neurological: States: numbness Endocrine: States: no symptoms reported All other Systems: Reviewed and Negative Past Medical History (General) - Patient Medical History Hx Seizures: No Hx Stroke: No Hx Dementia: No Hx Asthma: Yes Hx of COPD: No Hx Cardiac Disorders: No Hx Congestive Heart Failure: No Hx Pacemaker: No Hx Hypertension: No Hx Thyroid Disease: No Hx Diabetes: No Hx Gastroesophageal Reflux: Yes Hx Renal Disease: No Hx Cancer: No Hx of HIV: No Hx Hepatitis C: No Hx MRSA: No Surgical History: other - Vaccination History Hx Tetanus, Diphtheria Vaccination: Yes Hx Influenza Vaccination: No Hx Pneumococcal Vaccination: No - Social History Hx Tobacco Use: No Hx Chewing Tobacco Use: No Hx Alcohol Use: No Hx Substance Use: No Hx Substance Use Treatment: No Hx Depression: Yes Hx Physical Abuse: No Hx Emotional Abuse: No Hx Suspected Abuse: No - Female History Hx Last Menstrual Period: 07/09/18 Patient : No Expected Date of Delivery:: 02/22/15 - Triage Comment ED Triage Comment: LMP "last month" Family Medical History - Family History Mother Living Status: Still Living Hx Family Asthma: No Hx Family Congestive Heart Failure: No Hx Family Hypertension: Yes Hx Family Stroke: No Hx Cardiac Disease: No Hx Family Diabetes: Yes Hx Family Cancer: Yes Father Family History: Unknown Living Status: Unknown Physical Exam - Physical Exam General Appearance: Alert, No apparent distress, Well Developed, Well Nourished Eye Exam: bilateral normal ENT Exam: hearing grossly normal Neck: non-tender, full range of motion, supple Respiratory: lungs clear, normal breath sounds, no respiratory distress Cardiovascular/Chest: normal peripheral pulses, regular rate, rhythm, no edema, no murmur Peripheral Pulses: radial,right: 2+, radial,left: 2+, dorsalis pedis,right: 2+, dorsalis pedis,left: 2+, posterior tibialis,right: 2+, posterior tibialis,left: 2+ Gastrointestinal/Abdominal: normal bowel sounds, non tender, soft Back Exam: normal inspection, no CVA tenderness Extremities Exam: non-tender, normal range of motion, no edema, tenderness Mental Status: alert, 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 Reports associated with rash for the past 2 weeks. Denies acu te compressive spinal compressive symptoms, however, patient with loss of sensation and reflexes to BLE. Unclear etiology. No noted fever, cough, weakness, diarrhea or COVID symptoms. No reported incontinence or retention, and patient refused /rectal exam. No reported trauma, headache, vision change, or other symptoms reported. Patient ambulatory. I discussed diagnostic uncertainty at length with patient and need for further evaluation. Unfortunately, [facility] scan is inoperable at this time, and further diagnostic imaging could not be performed. 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 Discussed options for care with patient, and she voiced understanding, agreement, and consent to transfer. 09/27/19 19:11 Kali Randolph MD #[id number] Departure - Departure Clinical Impression: Numbness and tingling of both legs Time of Disposition: 19:12 Disposition: Transfer to Hospital Condition: Fair Referrals: Gi Abdullahi MD [Primary Care Provider] - 1-2 Weeks Home Medications: Ambulatory Orders Ondansetron Odt [Zofran ODT] 4 mg PO Q8HR PRN #5 tab 04/16/19 Sucralfate Tab [Carafate Tab] 1 gm PO QID #30 tab 04/16/19 Loratadine [Claritin] 10 mg PO DAILY #30 cap 04/23/19 Norgestimate-Ethinyl Estradiol [Tri-Sprintec] 1 tab PO DAILY 04/23/19 Amoxicillin & Pot Clavulanate [Augmentin Tab] 875 mg PO BID #14 tab 07/13/19 Clindamycin HCl 300 mg PO Q8HR #21 cap 07/13/19 Transfer to Outside Facility - Transfer Information Decision to Transfer Date: 09/27/19 Decision to Transfer Time: 19:09 Reason for Transfer: required specialist not available Accepting Provider:: Ann-Marie Accepting Facility: [facility] - per patient request, has previous visit/records there per her report
--- NOTE | 2019-09-27 18:02 | RAD ---
EXAM DESCRIPTION: Lumbar Spine 3 Views CLINICAL HISTORY: 34 years ,Female pain with numbness/tingling COMPARISON: None. TECHNIQUE: Three view FINDINGS: There is leftward convexity rotoscoliosis which limits evaluation. Additionally body habitus limits evaluation. Suspect congenital fusion at several levels. No definite acute fracture is noted. IMPRESSION: No acute fracture is identified. Electronically signed by: Gail Shetty MD 09/27/2019 6:00 PM CDT
--- NOTE | 2019-09-27 18:06 | RAD ---
EXAM: XR Cervical Spine, 2 or 3 Views CLINICAL HISTORY: pain, numbness/tingling TECHNIQUE: Frontal and lateral views of the cervical spine. COMPARISON: 10/22/2018. FINDINGS: Vertebrae: Stable diffuse vertebral body and facet bony fusion. No evident fracture. Normal alignment. Disc spaces: No acute findings. No significant narrowing. Soft tissues: Unremarkable. IMPRESSION: Chronic changes as above. No acute disease. If additional imaging is clinically warranted, MRI is modality of choice. Electronically signed by: Lauren Mcmahan MD 09/27/2019 6:05 PM CDT
--- NOTE | 2019-09-27 18:07 | RAD ---
EXAM: XR Thoracic Spine, 2 Views CLINICAL HISTORY: pain with numbness/tingling TECHNIQUE: Frontal and lateral views of the thoracic spine. COMPARISON: No relevant prior studies available. FINDINGS: Vertebrae: There is convex left thoracic scoliosis. There is multilevel partial to complete vertebral body fusion relatively sparing the first three thoracic levels. Multilevel mild spondylosis and disc space narrowing present. No visible fracture. Normal alignment. Soft tissues: Unremarkable. IMPRESSION: Chronic changes as above. No acute disease. Electronically signed by: Lauren Mcmahan MD 09/27/2019 6:06 PM CDT
[2019-09-27 19:21] VITALS: BP 120/88; TEMP 97.6; O2SAT 100
== END 2019-09-27 19:45 | disposition short-term general hospital (02) ==
LOC: ER 16:31
DX: R20.0 Anesthesia of skin (principal); R20.2 Paresthesia of skin; R21 Rash and other nonspecific skin eruption; R53.1 Weakness; K21.9 Gastro-esophageal reflux disease without esophagitis

== ENCOUNTER → 2020-02-01 | Outpatient (CLI) | payer OTHER ==
--- NOTE | 2020-02-05 07:03 | RAD ---
EXAM DESCRIPTION: KUB CLINICAL HISTORY: ABD PAIN COMPARISON: None. IMPRESSION: Single AP supine view of the abdomen shows a nonspecific, nonobstructive bowel gas pattern. Mildly increased volume of stool throughout the colon is seen suggesting mild constipation or obstipation. No abnormal calcifications are seen. Moderate degenerative changes of the spine are seen with levocurvature of the thoracolumbar junction. Lung bases are not included in the [id number]. Evaluation for free intraperitoneal air is limited without AP upright or left lateral decubitus imaging. Electronically signed by: Benito Simon MD 02/05/2020 7:02 AM CDT
== END ==
LOC: LAB.O 12:03
PROVIDERS: ATTEND Nurse Practitioner
DX: R10.9 Unspecified abdominal pain (principal); R31.9 Hematuria, unspecified; M47.895 Other spondylosis, thoracolumbar region

== ENCOUNTER 2020-02-14 21:35 | Emergency (ER) | payer OTHER ==
--- NOTE | 2020-02-14 21:47 | ED.PDOC ---
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 took some muscle relaxer at home (not flexeril or cyclobenzaprine) for pain, but continues to have neck pain and posterior head pain. no n/v. no blurred vision. Allergies/Adverse Reactions: Allergies Iodine Adverse Reaction (Intermediate, Verified 09/27/19 17:10) Nausea Patient stated that she has a reaction to CT contrast that results in a hot feeling with nausea and vomitting. Home Medications: Ambulatory Orders Ondansetron Odt [Zofran ODT] 4 mg PO Q8HR PRN #5 tab 04/16/19 Sucralfate Tab [Carafate Tab] 1 gm PO QID #30 tab 04/16/19 Loratadine [Claritin] 10 mg PO DAILY #30 cap 04/23/19 Norgestimate-Ethinyl Estradiol [Tri-Sprintec] 1 tab PO DAILY 04/23/19 Amoxicillin & Pot Clavulanate [Augmentin Tab] 875 mg PO BID #14 tab 07/13/19 Clindamycin HCl 300 mg PO Q8HR #21 cap 07/13/19 Cyclobenzaprine HCl [Cyclobenzaprine Hydrochlo] 7.5 mg PO TID PRN #12 tab 02/14/20 Prednisone 10 mg PO DAILY #5 tab 02/14/20 Review of Systems - Review of Systems Constitutional: Denies: chills, fever EENTM: Denies: eye pain, blurred vision Respiratory: Denies: cough, short of breath Cardiology: Denies: chest pain, palpitations Gastrointestinal/Abdominal: Denies: abdominal pain, diarrhea, nausea, vomiting Genitourinary: Denies: frequency, hematuria Musculoskeletal: States: muscle pain, neck pain. Denies: back pain, joint pain, muscle stiffness Neurological: States: headache. Denies: numbness, paresthesia, seizure, tingling, tremors, weakness Endocrine: Denies: increased thirst, increased urine Hematologic/Lymphatic: Denies: blood clots, easy bleeding, easy bruising Past Medical History (General) - Patient Medical History Hx Seizures: No Hx Stroke: No Hx Dementia: No Hx Asthma: Yes Hx of COPD: No Hx Cardiac Disorders: No Hx Congestive Heart Failure: No Hx Pacemaker: No Hx Hypertension: No Hx Thyroid Disease: No Hx Diabetes: No Hx Gastroesophageal Reflux: Yes Hx Renal Disease: No Hx Cancer: No Hx of HIV: No Hx Hepatitis C: No Hx MRSA: No - Vaccination History Hx Tetanus, Diphtheria Vaccination: Yes Hx Influenza Vaccination: No Hx Pneumococcal Vaccination: No - Social History Hx Tobacco Use: No Hx Chewing Tobacco Use: No Hx Alcohol Use: No Hx Substance Use: No Hx Substance Use Treatment: No Hx Depression: Yes Hx Physical Abuse: No Hx Emotional Abuse: No Hx Suspected Abuse: No - Female History Hx Last Menstrual Period: 07/09/18 Patient : No Expected Date of Delivery:: 02/22/15 Physical Exam - Physical Exam General Appearance: Alert, Comfortable, No apparent distress Head Injury: no evidence of injury, active bleeding, other - no rivas sign, no raccoon eyes, no contusions, no step offs or midline tenderness, complains of diffuse pain. full rom, supple ENT Exam: hearing grossly normal, no evidence of ENT injury, no dental injury Peripheral Pulses: radial,right: 2+, radial,left: 2+, dorsalis pedis,right: 2+, dorsalis pedis,left: 2+ Cardiovascular/Respiratory: regular rate, rhythm, no M/R/G, normal peripheral pulses, no JVD, normal breath sounds, no respiratory distress Gastrointestinal/Abdominal: normal bowel sounds, non tender, soft Back Exam: normal inspection, no CVA tenderness, no vertebral tenderness Extremity Exam: no evidence of injury, normal range of motion, non-tender, no pedal edema Neurologic: title curative specialist II-XII nml as tested, no motor/sensory deficits, alert, normal mood/affect, oriented x 3 Skin Exam: normal color, warm/dry - Dee Coma Score Best Eye Response (Dee): (4) open spontaneously Best Verbal Response (Dee): (5) oriented Best Motor Response (Dee): (6) obeys commands Progress - Progress Progress: 02/14/20 22:58 partial ddx: concussion, ich, cervical sprain, cervical fracture. Patient given 5 mg valium for muscle relaxation. CT head and C-spine ordered Pain continues, mild improvement with valium, denies hx of easy bleeding or bruising or nose bleeds. will get IM toradol 02/14/20 23:21 re-exam patient is asleep, awake her and she states her pain really hasn't changed. discussed CT findings with patient no evidence of acute injury noted. The data reviewed when caring for this patient included: nurse notes, prior records, etc. The history and assessments from nurses notes were reviewed and considered, and the patient's home medication list was also reviewed and considered. My assessment and the results of testing completed here in the ED were discussed with the patient. All questions were answered, and they express understanding of my assessment and the plan. They have been instructed to return if their symptoms worsen, and have been asked to follow up with their primary care physician to recheck today's presenting complaint. Strict return precautions given. I have reviewed medication, benefits, alternatives and side effects. Patient decided to proceed with medication.patient was discharged home in stable condition. Joelle Pryor DO #[id number] Departure - Departure Clinical Impression: Concussion Qualifiers: Encounter type: initial encounter Loss of consciousness presence/duration: without LOC Qualified Code(s): S06.0X0A - Concussion without loss of consciousness, initial encounter Neck sprain Qualifiers: Encounter type: initial encounter Qualified Code(s): S13.9XXA - Sprain of joints and ligaments of unspecified parts of neck, initial encounter Time of Disposition: 23:23 Disposition: Discharge to Home or Self Care Instructions: Concussion in Adults, Cervical Muscle Strain (DC) Diet: resume usual diet Activity: increase activity as tolerated Referrals: Gi Abdullahi MD [Primary Care Provider] - 1-2 Days Prescriptions: Cyclobenzaprine HCl [Cyclobenzaprine Hydrochlo] 7.5 mg PO TID PRN #12 tab PRN Reason: Muscle Spasms Prednisone 10 mg PO DAILY #5 tab Home Medications: Ambulatory Orders Ondansetron Odt [Zofran ODT] 4 mg PO Q8HR PRN #5 tab 04/16/19 Sucralfate Tab [Carafate Tab] 1 gm PO QID #30 tab 04/16/19 Loratadine [Claritin] 10 mg PO DAILY #30 cap 04/23/19 Norgestimate-Ethinyl Estradiol [Tri-Sprintec] 1 tab PO DAILY 04/23/19 Amoxicillin & Pot Clavulanate [Augmentin Tab] 875 mg PO BID #14 tab 02/14/20 Clindamycin HCl 300 mg PO Q8HR #21 cap 07/13/19 Cyclobenzaprine HCl [Cyclobenzaprine Hydrochlo] 7.5 mg PO TID PRN #12 tab 02/14/20 Prednisone 10 mg PO DAILY #5 tab 02/14/20
[2020-02-14 22:15] VITALS: BP 117/79; TEMP 97.6
[2020-02-14] MEDS: diazePAM 5 MG TAB PO ONE (22:25)
--- NOTE | 2020-02-14 22:53 | CT ---
PROCEDURE: Cervical Spine CLINICAL HISTORY: 34 years Female neck pain, fall COMPARISON: CT cervical spine from 10/22/2018. TECHNIQUE: Contiguous axial images obtained through the cervical spine without IV contrast. Coronal and sagittal reformatted images obtained. This exam was performed according to our department optimization program which includes automated exposure control, adjustment of the mA and/or kv according to patient size and/or use of iterative reconstruction technique. FINDINGS: There is mild curvature in the cervical spine convex right and curvature partially visualized in the upper thoracic spine convex left. There is straightening of the normal lordosis. There is congenital fusion of the vertebral bodies at multiple levels and fusion of the facets at multiple levels. There appears to be a hemivertebral body in the upper thoracic spine. There is partial fusion of the left first and second ribs. Vertebral body alignment is unremarkable. No acute fractures. There are small posteriorly projecting osteophytes at C6-7 without significant spinal stenosis. IMPRESSION: No acute cervical spinal fracture is identified. 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 Electronically signed by: Saud Shetty MD 02/14/2020 10:51 PM CDT
[2020-02-14] MEDS: KETOROLAC TROMETHAMINE INJ 30 MG/ML VIAL IM ONE (22:55)
--- NOTE | 2020-02-14 22:55 | CT ---
PROCEDURE: Head CLINICAL HISTORY: 34 years Female fall of ladder COMPARISON: None. TECHNIQUE: Contiguous axial CT images obtained through the brain without IV contrast. This exam was performed according to our department optimization program which includes automated exposure control, adjustment of the mA and/or kv according to patient size and/or use of iterative reconstruction technique. FINDINGS: The ventricles and sulci appear unremarkable. No abnormal areas of decreased density are identified. No mass lesions. No acute hemorrhage. No fluid or significant mucosal thickening in the visualized paranasal sinuses. No depressed calvarial fractures. IMPRESSION: No acute intracranial abnormality is identified. Electronically signed by: Saud Shetty MD 02/14/2020 10:54 PM CDT
[2020-02-14 23:30] VITALS: O2SAT 99
== END 2020-02-14 23:30 | disposition home or self-care (01) ==
LOC: ER 21:35
DX: S06.0X0A Concussion without loss of consciousness, initial encounter (principal); S13.9XXA Sprain of joints and ligaments of unspecified parts of neck, initial encounter; Q87.19 Other congenital malformation syndromes predominantly associated with short stature; J45.909 Unspecified asthma, uncomplicated; Z88.8 Allergy status to other drugs, medicaments and biological substances; Z79.899 Other long term (current) drug therapy; W08.XXXA Fall from other furniture, initial encounter; Y92.9 Unspecified place or not applicable
CPT/HCPCS: 70450; 72125; J1885

== ENCOUNTER → 2020-02-19 | Outpatient (CLI) | payer OTHER ==
--- NOTE | 2020-02-20 09:50 | US ---
EXAM DESCRIPTION: Breast,Right: Ultrasound CLINICAL HISTORY: 34 yearsFemaleLUMP RIGHT BREAST . Lump lateral right breast. No personal history of breast cancer. Remote family history of breast cancer. Menarche age 16. Childbirth age 25. Premenopausal. No HRT. Lifetime risk of developing breast cancer (Tyrer-Cuzick model)(%): Not calculated due to patient age less than 35 years. COMPARISON: Bilateral diagnostic digital breast tomosynthesis and left breast directed ultrasound July 2018. TECHNIQUE: Transcutaneous scanning of the right breast utilizing bermudez-scale and Doppler modes. Scanning performed by the shearing machine feeder and Dr. Gibbs. FINDINGS: Ultrasound: Scanning of the region of interest upper outer quadrant right breast. Concert Manager and physician did not palpate a mass. Mostly fibroglandular tissues with minimal fatty echotexture. No dominant solid mass, no distinct cyst, no fluid collection, no large calcification. IMPRESSION: No suspicious or significant imaging findings. BI-RADS CATEGORY: 1 - NEGATIVE RECOMMENDATIONS: FOLLOW UP: The region of interest should be followed on clinical grounds and if noted to change in size or character, a directed follow-up ultrasound examination may be performed. Written communication explaining the findings and follow-up, will be mailed to the patient and referring health care provider. The FINDINGS and the FOLLOW-UP plan were reviewed in person with the patient after the examination. According to the [employer], yearly mammograms are recommended starting at age 40 and continuing as long as a woman is in good health. Any breast change noted on a breast self-exam should be reported promptly to the patient's healthcare provider. Breast MRI is recommended for women with an approximately 20-25% or greater lifetime risk of breast cancer, including women with a strong family history of breast or ovarian cancer and women who have been treated for Hodgkin's disease. A negative mammographic report should not delay tissue diagnosis in patients with significant clinical history or physical findings. Extremely dense breast tissue limits the sensitivity of digital mammography. Electronically signed by: Brendon Gibbs MD 02/20/2020 9:48 AM CDT
== END ==
LOC: MAMMO 10:05
PROVIDERS: ATTEND Nurse Practitioner
DX: N64.59 Other signs and symptoms in breast (principal)

== ENCOUNTER 2020-03-09 17:19 | Emergency (ER) | payer OTHER ==
--- NOTE | 2020-03-09 17:42 | ED.PDOC ---
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 states she fell a few weeks ago and the pain has gotten worse since then. + nausea, but no emesis or diarrhea. no black or bloody bm. LMP one month ago. no dysuria or hematuria. Abdominal Pain Onset Location: LLQ Review of Systems - Review of Systems Constitutional: Denies: chills, fever EENTM: Denies: blurred vision, ear discharge, throat pain Respiratory: Denies: cough, short of breath, wheezing Cardiology: Denies: chest pain, palpitations Gastrointestinal/Abdominal: States: abdominal pain, nausea. Denies: constipation, diarrhea, vomiting Genitourinary: Denies: dysuria, frequency, hematuria Musculoskeletal: Denies: back pain, muscle stiffness Skin: Denies: rash Neurological: Denies: headache, numbness, paresthesia, seizure, tingling, tremors, weakness Hematologic/Lymphatic: Denies: blood clots, easy bleeding, easy bruising Past Medical History (General) - Patient Medical History Hx Seizures: No Hx Stroke: No Hx Dementia: No Hx Asthma: Yes Hx of COPD: No Hx Cardiac Disorders: No Hx Congestive Heart Failure: No Hx Pacemaker: No Hx Hypertension: No Hx Thyroid Disease: No Hx Diabetes: No Hx Gastroesophageal Reflux: Yes Hx Renal Disease: No Hx Cancer: No Hx of HIV: No Hx Hepatitis C: No Hx MRSA: No - Vaccination History Hx Tetanus, Diphtheria Vaccination: Yes Hx Influenza Vaccination: No Hx Pneumococcal Vaccination: No - Social History Hx Tobacco Use: No Hx Chewing Tobacco Use: No Hx Alcohol Use: No Hx Substance Use: No Hx Substance Use Treatment: No Hx Depression: Yes Hx Physical Abuse: No Hx Emotional Abuse: No Hx Suspected Abuse: No - Female History Hx Last Menstrual Period: 07/09/18 Patient : No Expected Date of Delivery:: 02/22/15 Family Medical History - Family History Mother Living Status: Still Living Hx Family Asthma: No Hx Family Congestive Heart Failure: No Hx Family Hypertension: Yes Hx Family Stroke: No Hx Cardiac Disease: No Hx Family Diabetes: Yes Hx Family Cancer: Yes Father Family History: Unknown Living Status: Unknown Physical Exam - Physical Exam General Appearance: Alert, Comfortable, No apparent distress, Well Developed, Well Groomed, Well Hydrated, Well Nourished Eyes, Ears, Nose, Throat Exam: PERRL/EOMI, normal ENT inspection, TMs normal Neck: non-tender, full range of motion, supple, normal inspection Respiratory: chest non-tender, lungs clear, normal breath sounds, no respiratory distress, no accessory muscle use Cardiovascular/Chest: normal peripheral pulses, regular rate, rhythm, no edema, no gallop, no JVD, no murmur Peripheral Pulses: 2+ Gastrointestinal/Abdominal: normal bowel sounds, non tender, soft, no organomegaly, no pulsatile mass, other - negative mcrburneys, negative rosving, no rebound, no gaurding. Rectal Exam: deferred Extremity: normal range of motion, non-tender, normal inspection, no pedal edema, no calf tenderness, normal capillary refill Neurologic: no motor/sensory deficits, alert, normal mood/affect, oriented x 3 Skin Exam: normal color, warm/dry Special Observations: No evidence of discomfort Progress - Progress Progress: 03/09/20 18:50 CT abd/pelvis: 1. Cholelithiasis with a 9 mm stone near the gallbladder neck. Follow-up with ultrasound if clinically warranted. 2. No nephrolithiasis, hydronephrosis or ureter stone. 3. 1.8 cm left ovarian simple cyst. No follow-up imaging is recommended. 4. Bladder wall thickening versus artifact of incomplete distention. Correlate clinically for cystitis/UTI. re-evaluation of patient, she has no RUQ pain, negative murphys. no rebound or guarding. Due to having no symptoms I do not feel emergent surgery is needed at this time. VSS, afebrile. I explained the gallstone findings and need for ultrasound and possible surgery. strict return warnings given including but not limited too RUQ pain, n/v, fever, jaundice. The data reviewed when caring for this patient included: nurse notes, prior records, etc. The history and assessments from nurses notes were reviewed and considered, and the patient's home medication list was also reviewed and considered. My assessment and the results of testing completed here in the ED were discussed with the patient/family. All questions were answered, and they express understanding of my assessment and the plan. They have been instructed to return if their symptoms worsen, and have been asked to follow up with their primary care physician to recheck today's presenting complaint. Strict abdominal return precautions given. I have reviewed medication, benefits, alternatives and side effects. Patient decided to proceed with medication. Joelle Pryor DO #[id number] - Results/Orders Results/Orders: Laboratory Results WBC 5.3 K/mm3 (4.8-10.8) 03/09/20 17:42 RBC 5.12 M/mm3 (4.20-5.40) 03/09/20 17:42 Hgb 14.5 gm/dL (12.0-16.0) 03/09/20 17:42 Hct 42.8 % (36.0-47.0) 03/09/20 17:42 MCV 83.6 fl (81.0-99.0) 03/09/20 17:42 MCH 28.2 pg (27.0-31.0) 03/09/20 17:42 MCHC 33.8 g/dL (33.0-37.0) 03/09/20 17:42 RDW 13.6 % (11.5-14.5) 03/09/20 17:42 Plt Count 152 K/mm3 (130-400) 03/09/20 17:42 MPV 9.0 fl (7.40-10.4) 03/09/20 17:42 Absolute Neuts (auto) 3.00 K/uL (1.8-6.8) 03/09/20 17:42 Absolute Lymphs (auto) 1.80 K/uL (1.0-3.4) 03/09/20 17:42 Absolute Monos (auto) 0.30 K/uL (0.2-0.8) 03/09/20 17:42 Absolute Eos (auto) 0.10 K/uL (0.0-0.4) 03/09/20 17:42 Absolute Basos (auto) 0.00 K/uL (0.0-0.1) 03/09/20 17:42 Neutrophils % 56.7 % (42.0-78.0) 03/09/20 17:42 Lymphocytes % 35.0 % (20.0-50.0) 03/09/20 17:42 Monocytes % 6.2 % (2.0-9.0) 03/09/20 17:42 Eosinophils % 1.2 % (1.0-5.0) 03/09/20 17:42 Basophils % 0.9 % (0.0-2.0) 03/09/20 17:42 Sodium 137 mmol/L (135-145) 03/09/20 17:42 Potassium 3.5 mmol/L (3.6-5.0) L 03/09/20 17:42 Chloride 102 mmol/L (101-111) 03/09/20 17:42 Carbon Dioxide 24 mmol/L (21-31) 03/09/20 17:42 Anion Gap 14.5 (12-18) 03/09/20 17:42 BUN 14 mg/dL (7-18) 03/09/20 17:42 Creatinine 0.76 mg/dL (0.6-1.3) 03/09/20 17:42 BUN/Creatinine Ratio 18.4 (10-20) 03/09/20 17:42 Random Glucose 108 mg/dL (70-105) H 03/09/20 17:42 Serum Osmolality 274.8 mOsm/L (275-295) L 03/09/20 17:42 Calcium 9.2 mg/dL (8.4-10.2) 03/09/20 17:42 Total Bilirubin 1.2 mg/dL (0.2-1.0) H 03/09/20 17:42 AST 20 IU/L (10-42) 03/09/20 17:42 ALT 14 IU/L (10-60) 03/09/20 17:42 Alkaline Phosphatase 56 IU/L (42-121) 03/09/20 17:42 Serum Total Protein 7.5 gm/dL (6.4-8.2) 03/09/20 17:42 Albumin 4.3 g/dl (3.2-5.5) 03/09/20 17:42 Globulin 3.2 gm/dL (2.3-3.5) 03/09/20 17:42 Albumin/Globulin Ratio 1.3 (1.1-1.9) 03/09/20 17:42 Urine Color Yellow (Yellow) 03/09/20 17:57 Urine Appearance Clear (Clear) 03/09/20 17:57 Urine pH 5.5 (4.5-7.8) 03/09/20 17:57 Ur Specific [place] 1.015 (1.005-1.030) 03/09/20 17:57 Urine Protein Negative mg/dL 03/09/20 17:57 Urine Glucose (UA) Negative mg/dL (Negative) 03/09/20 17:57 Urine Ketones Negative mg/dL (NEGATIVE) 03/09/20 17:57 Urine Blood Trace-intact (Negative) H 03/09/20 17:57 Urine Nitrite Negative 03/09/20 17:57 Urine Bilirubin Negative (NEGATIVE) 03/09/20 17:57 Urine Urobilinogen 0.2 mg/dL (0.2-1.0) 03/09/20 17:57 Ur Leukocyte Esterase Negative (Negative) 03/09/20 17:57 Urine RBC 1-3 /hpf 03/09/20 17:57 Urine WBC 0 /hpf 03/09/20 17:57 Ur Epithelial Cells 3-5 /hpf 03/09/20 17:57 Urine Bacteria Rare 03/09/20 17:57 Urine HCG, Qual Negative (NEGATIVE) 03/09/20 17:29 Departure - Departure Clinical Impression: Cholelithiasis Qualifiers: Cholelithiasis location: gallbladder Cholecystitis presence: without cholecystitis Biliary obstruction: without biliary obstruction Qualified Code(s): K80.20 - Calculus of gallbladder without cholecystitis without obstruction Abdominal pain Qualifiers: Abdominal location: left lower quadrant Qualified Code(s): R10.32 - Left lower quadrant pain Time of Disposition: 18:56 Disposition: Discharge to Home or Self Care Departure Forms: ED Discharge - Pt. Copy, Patient Portal Self Enrollment Instructions: Acute Abdomen (Belly Pain), Adult (DC), Gallstones (DC) Referrals: Gi Abdullahi MD [Primary Care Provider] - 1-5 Days Quintin Montes MD [Active Staff] - 1-2 Days Prescriptions: Dicyclomine HCl [Bentyl] 20 mg PO TID PRN #15 tab PRN Reason: Abdominal Cramping Home Medications: Ambulatory Orders Sucralfate Tab [Carafate Tab] 1 gm PO QID #30 tab 04/16/19 Loratadine [Claritin] 10 mg PO DAILY #30 cap 04/23/19 Norgestimate-Ethinyl Estradiol [Tri-Sprintec] 1 tab PO DAILY 04/23/19 Dicyclomine HCl [Bentyl] 20 mg PO TID PRN #15 tab 03/09/20
[2020-03-09 17:53] VITALS: TEMP 97.1
[2020-03-09] MEDS ORDERED: ONDANSETRON INJ 4 MG/2 ML VIAL IV ONE (17:54)
[2020-03-09] MEDS ORDERED: ONDANSETRON ODT 8 MG TAB SL ONE (18:07)
--- NOTE | 2020-03-09 18:49 | CT ---
EXAM: CT Abdomen and Pelvis Without Intravenous Contrast CLINICAL HISTORY: The patient is 34 years old and is Female; llq pain TECHNIQUE: Axial computed tomography images of the abdomen and pelvis without intravenous contrast. Sagittal and coronal reformatted images were created and reviewed. This CT exam was performed using one or more of the following dose reduction techniques: automated exposure control, adjustment of the mA and/or kV according to patient size, and/or use of iterative reconstruction technique. COMPARISON: January 24, 2019 CT abdomen pelvis without contrast. FINDINGS: Lung bases: Unremarkable. No mass. No consolidation. ABDOMEN: Liver: Unremarkable. Gallbladder and bile ducts: Cholelithiasis with a 9 mm stone in or near the gallbladder neck. No ductal dilation. Pancreas: Unremarkable. No ductal dilation. Spleen: Unremarkable. No splenomegaly. Adrenals: Unremarkable. No mass. Kidneys and ureters: No nephrolithiasis, hydronephrosis or ureter stone. Stomach and bowel: No bowel dilatation or obstruction. No bowel wall thickening. PELVIS: Appendix: The visualized appendix is normal. No pericecal inflammation to suggest acute appendicitis. Bladder: Bladder wall thickening versus artifact of incomplete distention. No stones. Reproductive: 1.8 cm left ovarian simple cyst. Uterus is unremarkable. ABDOMEN and PELVIS: Intraperitoneal space: Unremarkable. No free air. No significant fluid collection. Bones/joints: Moderate scoliosis with multilevel developmental segmentation anomalies. Degenerative changes in the bilateral hips, left greater than right. No acute fracture visualized. No dislocation. Soft tissues: Unremarkable. Vasculature: Unremarkable. No abdominal aortic aneurysm. Lymph nodes: No pathologically enlarged lymph nodes. IMPRESSION: 1. Cholelithiasis with a 9 mm stone near the gallbladder neck. Follow-up with ultrasound if clinically warranted. 2. No nephrolithiasis, hydronephrosis or ureter stone. 3. 1.8 cm left ovarian simple cyst. No follow-up imaging is recommended. Reference: J Am Denny Radiol 2013;10:[id number] 4. Bladder wall thickening versus artifact of incomplete distention. Correlate clinically for cystitis/UTI. 5. Additional non-emergent findings as above. Electronically signed by: Dina Hastings MD 03/09/2020 6:47 PM CDT
[2020-03-09] MEDS ORDERED: MORPHINE SULFATE INJ 10 MG/ML VIAL IV ONE (18:53)
[2020-03-09] MEDS ORDERED: MORPHINE SULFATE INJ 10 MG/ML VIAL IM ONE (18:59)
[2020-03-09 19:18] VITALS: BP 121/79; O2SAT 97
== END 2020-03-09 19:21 | disposition home or self-care (01) ==
LOC: ER 17:19
DX: K80.20 Calculus of gallbladder without cholecystitis without obstruction (principal); R10.32 Left lower quadrant pain; N83.202 Unspecified ovarian cyst, left side; K21.9 Gastro-esophageal reflux disease without esophagitis; F32.9 Major depressive disorder, single episode, unspecified; J45.909 Unspecified asthma, uncomplicated
CPT/HCPCS: 36415; 74176; 80053; 81001; 81025; 85025; J2270

== ENCOUNTER 2020-03-09 22:53 | Emergency (ER) | payer OTHER ==
--- NOTE | 2020-03-09 23:04 | ED.PDOC ---
History of Present Illness - General Chief Complaint: Respiratory Problem Time Seen by Provider: 03/09/20 22:54 Source: patient, RN notes reviewed, Vital Signs reviewed, old records Exam Limitations: no limitations - History of Present Illness Initial Comments: 34 yo F with tosha syndrome was discharged aprx 2 hours ago after she came in with LLQ abdominal pain. Returns with c/c of shortness of breath x 30 minutes. denies cough. does have hx of asthma. no aspiration, no fever. no chest pain. no hx of blood clots. declines ruq or abdominal pain at this time. Timing/Duration: 1/2 hour Severity: mild Activities at Onset: none Allergies/Adverse Reactions: Allergies Iodine Adverse Reaction (Intermediate, Verified 03/09/20 17:53) Nausea Patient stated that she has a reaction to CT contrast that results in a hot feeling with nausea and vomitting. Home Medications: Ambulatory Orders Sucralfate Tab [Carafate Tab] 1 gm PO QID #30 tab 04/16/19 Loratadine [Claritin] 10 mg PO DAILY #30 cap 04/23/19 Norgestimate-Ethinyl Estradiol [Tri-Sprintec] 1 tab PO DAILY 04/23/19 Azithromycin 250 mg PO DAILY #6 tab 03/09/20 Dicyclomine HCl [Bentyl] 20 mg PO TID PRN #15 tab 03/09/20 Prednisone 20 mg PO DAILY #4 tab 03/09/20 Review of Systems - Review of Systems Constitutional: States: weakness. Denies: chills, fever EENTM: Denies: blurred vision, double vision, throat pain, throat swelling, mouth pain, mouth swelling Respiratory: States: short of breath. Denies: cough, stridor, wheezing Cardiology: States: palpitations, syncope. Denies: chest pain Gastrointestinal/Abdominal: Denies: abdominal pain, diarrhea, nausea, vomiting Genitourinary: Denies: dysuria, frequency, hematuria Musculoskeletal: Denies: back pain, joint pain, joint swelling, muscle pain, neck pain Skin: Denies: rash Neurological: Denies: headache, numbness, paresthesia, tremors Endocrine: Denies: unexplained weight gain, unexplained weight loss Hematologic/Lymphatic: Denies: easy bleeding, easy bruising Past Medical History (General) - Patient Medical History Hx Seizures: No Hx Stroke: No Hx Dementia: No Hx Asthma: Yes Hx of COPD: No Hx Cardiac Disorders: No Hx Congestive Heart Failure: No Hx Pacemaker: No Hx Hypertension: No Hx Thyroid Disease: No Hx Diabetes: No Hx Gastroesophageal Reflux: Yes Hx Renal Disease: No Hx Cancer: No Hx of HIV: No Hx Hepatitis C: No Hx MRSA: No - Vaccination History Hx Tetanus, Diphtheria Vaccination: Yes Hx Influenza Vaccination: No Hx Pneumococcal Vaccination: No - Social History Hx Tobacco Use: No Hx Chewing Tobacco Use: No Hx Alcohol Use: No Hx Substance Use: No Hx Substance Use Treatment: No Hx Depression: Yes Hx Physical Abuse: No Hx Emotional Abuse: No Hx Suspected Abuse: No - Female History Hx Last Menstrual Period: 07/09/18 Patient : No Expected Date of Delivery:: 02/22/15 Family Medical History - Family History Mother Living Status: Still Living Hx Family Asthma: No Hx Family Congestive Heart Failure: No Hx Family Hypertension: Yes Hx Family Stroke: No Hx Cardiac Disease: No Hx Family Diabetes: Yes Hx Family Cancer: Yes Father Family History: Unknown Living Status: Unknown Physical Exam - Physical Exam General Appearance: Alert, Comfortable, No apparent distress, Well Developed, Well Groomed, Well Hydrated, Well Nourished Eyes, Ears, Nose, Throat Exam: PERRL/EOMI, normal ENT inspection Neck: non-tender, full range of motion, supple, normal inspection Respiratory: chest non-tender, lungs clear, normal breath sounds, no respiratory distress, no accessory muscle use Cardiovascular/Chest: normal peripheral pulses, regular rate, rhythm, no edema, no gallop, no JVD, no murmur Peripheral Pulses: radial,right: 2+, radial,left: 2+ Gastrointestinal/Abdominal: normal bowel sounds, non tender, soft, no organomegaly, no pulsatile mass, other - negative rahman, no rebound or gaurding. Rectal Exam: deferred Extremity: normal range of motion, non-tender, normal inspection, no pedal edema, no calf tenderness, normal capillary refill Neurologic: client analyst II-XII nml as tested, no motor/sensory deficits, alert, normal mood/affect, oriented x 3 Skin Exam: normal color, warm/dry Progress - Progress Progress: 03/09/20 23:31 partail ddx: asthma exacerbation, pneumonia, covid, anxiety. 03/09/20 23:58 covid negative. The data reviewed when caring for this patient included: nurse notes, prior re cords, etc. The history and assessments from nurses notes were reviewed and considered, and the patient's home medication list was also reviewed and considered. My assessment and the results of testing completed here in the ED were discussed with the patient. All questions were answered, and she express understanding of my assessment and the plan. She have been instructed to return if their symptoms worsen, and have been asked to follow up with her primary care physician to recheck today's presenting complaint. Strict return precautions given. I have reviewed medication, benefits, alternatives and side effects. Patient decided to proceed with medication. Joelle Pryor DO #[id number] - Results/Orders Results/Orders: 03/09/20 23:04 EKG Assessment ONCE EKG Assessment ONCE 03/09/20 23:15 EKG STAT 03/09/20 23:57 Discharge Stat Laboratory Results Troponin I < 0.02 ng/mL (0.01-0.05) 03/09/20 23:33 B-Natriuretic Peptide < 15.0 pg/ml (0-100) 03/09/20 23:33 - EKG/XRAY/CT EKG: Sinus Comments: RSR pattern in inf/lateral leads, no acute ischemia,no prior for com parison XRAY: chest - bilateral basal opacities. Departure - Departure Clinical Impression: Tosha syndrome Pneumonia Qualifiers: Pneumonia type: due to unspecified organism Laterality: bilateral Lung location: lower lobe of lung Qualified Code(s): J18.9 - Pneumonia, unspecified organism Time of Disposition: 23:32 Disposition: Discharge to Home or Self Care Departure Forms: ED Discharge - Pt. Copy, Patient Portal Self Enrollment Instructions: Pneumonia in Adults Diet: bland diet Referrals: Gi Abdullahi MD [Primary Care Provider] - 1-2 Days Prescriptions: Azithromycin 250 mg PO DAILY #6 tab Prednisone 20 mg PO DAILY #4 tab Home Medications: Ambulatory Orders Sucralfate Tab [Carafate Tab] 1 gm PO QID #30 tab 04/16/19 Loratadine [Claritin] 10 mg PO DAILY #30 cap 04/23/19 Norgestimate-Ethinyl Estradiol [Tri-Sprintec] 1 tab PO DAILY 04/23/19 Azithromycin 250 mg PO DAILY #6 tab 03/09/20 Dicyclomine HCl [Bentyl] 20 mg PO TID PRN #15 tab 03/09/20 Prednisone 20 mg PO DAILY #4 tab 03/09/20
[2020-03-09] MEDS ORDERED: DEXAMETHASONE 4 MG TAB PO ONE (23:12)
--- NOTE | 2020-03-09 23:29 | RAD ---
EXAM DESCRIPTION: Chest,1 View CLINICAL HISTORY: 34 years Female, sob COMPARISON: 03/26/2019 TECHNIQUE: Single AP chest radiograph. FINDINGS: Bilateral basilar predominant pulmonary opacities, nonspecific. Normal cardiomediastinal contour. No pneumothorax or pleural effusion. IMPRESSION: 1. Nonspecific bibasilar pulmonary opacities. Differential includes infection or edema. Electronically signed by: Stepan España MD 03/09/2020 11:27 PM CDT
[2020-03-09 23:39] VITALS: TEMP 97.6
[2020-03-10 00:08] VITALS: BP 102/69; O2SAT 98
== END 2020-03-10 00:09 | disposition home or self-care (01) ==
LOC: ER 22:53
DX: J18.9 Pneumonia, unspecified organism (principal); Q87.19 Other congenital malformation syndromes predominantly associated with short stature; R00.2 Palpitations; R55 Syncope and collapse; J45.909 Unspecified asthma, uncomplicated; K21.9 Gastro-esophageal reflux disease without esophagitis; F32.9 Major depressive disorder, single episode, unspecified; Z79.899 Other long term (current) drug therapy; Z91.041 Radiographic dye allergy status
CPT/HCPCS: 71045; 83880; 84484; 87635; 93005; J8540

== ENCOUNTER → 2020-03-12 | Outpatient (CLI) | payer OTHER, MEDICARE | LOC: YCFC.O 14:44 | PROVIDERS: ATTEND Family Medicine | DX: R10.9 Unspecified abdominal pain (principal) ==

== ENCOUNTER → 2020-03-13 | Outpatient (CLI) | payer OTHER, MEDICARE ==
--- NOTE | 2020-03-14 08:25 | US ---
EXAM DESCRIPTION: Gall Bladder: ULTRASOUND. CLINICAL HISTORY: ABDOMINAL PAIN COMPARISON: CT abdomen March 09. TECHNIQUE: Transabdominal scanning: Murphy-scale and Doppler modes. FINDINGS: Gallbladder: Slightly contracted containing echogenic stones with acoustic shadowing and sludge. No fluid around the gallbladder. No wall thickening. 2 mm. Non-tender with transducer pressure. Common bile duct: caliber 5 mm within normal limits. Liver: normal echogenicity; circumscribed hyperintense 1.0 x 1.2 cm subcortical object right lobe contour liver capsule smooth where seen. No fluid around the liver. Intrahepatic biliary ducts normal caliber. Doppler hepatopedal flow portal vein.. Normal caliber portal vein 10 mm. Long axis right lobe 16.8 cm. Pancreas: normal size Normal echogenicity. Duct not seen. Aorta: 1.4 cm proximal diameter normal caliber. Right kidney: long axis is 6.4 cm.; volume 71.2 mL. Normal cortical thickness. Echogenicity is increased but less than the liver. No echogenic stones; no hydronephrosis. IMPRESSION: 1. Gallbladder contracted containing stones and sludge. No wall thickening or fluid. Nontender with transducer pressure. Common bile duct normal caliber. 2. Kidneys small with normal cortical thickness. Increased echogenicity of the cortex but less than the liver. Normal caliber of the abdominal aorta. 3. Liver borderline enlarged with physiologic vascularity and portal vein. 1.2 cm hemangioma right lobe subcortical. Consider follow-up imaging if patient demonstrating abnormal liver function. Electronically signed by: Brendon Gibbs MD 03/14/2020 8:23 AM CDT
== END ==
LOC: US 08:38
PROVIDERS: ATTEND Family Medicine
DX: K80.20 Calculus of gallbladder without cholecystitis without obstruction (principal); R16.0 Hepatomegaly, not elsewhere classified; D18.03 Hemangioma of intra-abdominal structures; N28.9 Disorder of kidney and ureter, unspecified; K82.8 Other specified diseases of gallbladder